=== PATIENT | male | born 1960 | race Caucasian/White ===

== ENCOUNTER 2022-06-02 20:56 | Inpatient (IN) | payer MEDICARE, MEDICAID, SELFPAY ==
[2022-06-02] VITALS (7 sets, daily range): BP systolic 111–142; BP diastolic 77–80; PULSE 66–96; RESP 18; TEMP 36.6; O2SAT 97–100; BMI 28.3
--- NOTE | 2022-06-02 22:28 | ED.SKABFB ---
HPI - Skin/Abscess/Foreign Bdy General Chief complaint: Skin/Abscess/Foreign Body Stated complaint: Lt. leg inner thigh abcess Time Seen by Provider: 06/02/22 22:15 Source: patient Mode of arrival: Ambulatory Limitations: no limitations History of Present Illness HPI narrative: Patient is a 61-year-old male who several days ago started to have increasing redness and swelling to the left upper inner thigh. He went to an outside hospital walk-in clinic. Was placed on Keflex and had a incision and drainage performed. Since that time he states that he is had increasing swelling. The redness has extended outside of the line that was drawn on his leg. Also has had increasing discomfort. There has been drainage from the incision site. He denies any testicular or urinary symptoms. Related Data Allergies Allergy/AdvReac Type Severity Reaction Status Date / Time No Known Drug Allergies Allergy Verified 06/02/22 21:40 Review of Systems Constitutional Constitutional: Reports system reviewed and no additional complaints, except as documented Musculoskeletal Musculoskeletal: Reports system reviewed and no additional complaints, except as documented Integumentary/Breasts Skin/Breast: Reports system reviewed and no additional complaints, except as documented Neurologic Neurologic: Reports system reviewed and no additional complaints, except as documented Patient History Medical History Alcohol use Tobacco abuse Surgical History History of neck surgery Social History household members: family Smoking Status: Current every day smoker alcohol intake: current substance use type: former substance user additional social history: Lives alone, unemployed Smoking Status: Current every day smoker alcohol intake frequency: 0-2 drinks per day Substance Use Type: does not use Exam Initial Vital Signs Initial Vital Signs: Vital Signs Temperature 98 F 06/02/22 21:40 Pulse Rate 96 H 06/02/22 21:40 Respiratory Rate 18 06/02/22 21:40 Blood Pressure 112/79 06/02/22 21:40 Pulse Oximetry 98 06/02/22 21:40 Oxygen Delivery Method Room Air 06/02/22 21:40 Const General: cooperative, comfortable and No ill appearing External: normal external exam Scrotum: scrotum normal Skin Other: There is a large area of redness and encompassing the anterior medial aspect of the left upper thigh. There is a large area of induration. There is a small incision from his prior I and D that is draining purulent material. Extrem General: capillary refill normal Course Orders Ordered: ED Orders 06/02/22 22:15 COVID19 -Nasal RAPID Stat 06/02/22 22:42 Basic Metabolic Panel Stat Complete Blood Count AUTO DIFF Stat 06/02/22 23:12 Blood Culture Stat 06/02/22 23:27 Wound Culture and Gram Stain Stat Acetaminophen (Acetaminophen 325 Mg Tablet) 650 mg PO Q6H PRN PRN Reason: Fever/Mild Pain (1-3) Last Admin: 06/03/22 01:10 Dose: 650 mg Documented By: AC Hydrocodone Bitart/Acetaminophen (Hydrocodone/Acet 5/325 Tablet) 2 tab PO Q4H PRN PRN Reason: Pain, Moderate (4-10 Al Hydrox/Mg Hydrox/Simethicone (Mag Hydrox/Alum/Simeth 30 Ml Udc) 30 ml PO Q6HR PRN PRN Reason: Dyspepsia Calcium Carbonate (Calcium Carbonate 500 Mg Tab) 1,000 mg PO Q4HR PRN PRN Reason: Dyspepsia Enoxaparin Sodium (Enoxaparin 40 Mg/0.4 Ml Syringe) 40 mg SUBCUT DAILY [facility] Folic Acid (Folic Acid 1 Mg Tablet) 1 mg PO DAILY [facility] Sodium Chloride (Normal Saline 0.9%) 1,000 mls @ 100 mls/hr IV CONT EFE Last Admin: 06/02/22 23:58 Dose: 100 mls/hr Documented By: AC Ceftriaxone Sodium 1,000 mg/ (Sodium Chloride) 100 mls @ 200 mls/hr IV Q24H EFE Lorazepam (Lorazepam 1 Mg Tablet) 0 mg PO CIWAPRN PRN; Protocol PRN Reason: Alcohol Withdrawal Multivitamins (Multivitamin 1 Tablet) 1 tab PO DAILY [facility] Naloxone HCl (Naloxone 0.4 Mg/Ml Vial) 0.2 mg IV Q2MIN PRN PRN Reason: Opiate Reversal Nicotine (Nicotine 14 Patch) 14 mg TOP DAILY [facility] Ondansetron HCl (Ondansetron 4 Mg/2 Ml Inj) 4 mg IV Q4HR PRN PRN Reason: Nausea And Vomiting Sennosides (Sennosides 8.6 Mg Tablet) 17.2 mg PO BEDTIME [facility] Thiamine HCl (Thiamine 100 Mg Tablet) 100 mg PO DAILY [facility] Stop: 06/06/22 09:01 Discontinued Medications Hydrocodone Bitart/Acetaminophen (Hydrocodone/Acet 5/325 Tablet) 1 tab PO NOW ONE Stop: 06/02/22 22:30 Last Admin: 06/02/22 22:54 Dose: 1 tab Documented By: [place] Hydrocodone Bitart/Acetaminophen (Hydrocodone/Acet 5/325 Tablet) 1 tab PO Q4H PRN PRN Reason: Pain, Moderate (4-10 Sodium Chloride (Normal Saline 0.9%) 1,000 mls @ 125 mls/hr IV CONT EFE Last Admin: 06/03/22 01:39 Dose: Not Given Documented By: LITTLE Vancomycin HCl (Vancomycin) 1,000 mg in 200 mls @ 200 mls/hr IV NOW ONE Stop: 06/02/22 23:28 Last Infusion: 06/03/22 00:51 Dose: 0 mls/hr Documented By: Admin: 06/02/22 23:51 Dose: 200 mls/hr Documented By: LITTLE Ceftriaxone Sodium 1,000 mg/ (Sodium Chloride) 100 mls @ 200 mls/hr IV NOW ONE Stop: 06/02/22 22:30 Last Infusion: 06/02/22 23:27 Dose: 0 mls/hr Documented By: Admin: 06/02/22 22:57 Dose: 200 mls/hr Documented By: [place] Ceftriaxone Sodium 1,000 mg/ (Sodium Chloride) 100 mls @ 200 mls/hr IV NOW ONE Stop: 06/02/22 23:09 Last Admin: 06/03/22 01:15 Dose: 200 mls/hr Documented By: LITTLE Vital Signs Vital signs: Vital Signs - 8 hr 06/02/22 21:40 06/02/22 22:15 06/02/22 22:15 Temperature 98 F Pulse Rate 96 H 75 Respiratory Rate 18 Blood Pressure 112/79 133/78 Pulse Oximetry 98 99 Oxygen Delivery Method Room Air 06/02/22 22:30 06/02/22 22:30 Temperature Pulse Rate 75 Respiratory Rate Blood Pressure 119/77 Pulse Oximetry 97 Oxygen Delivery Method MDM - Skin/Abscess/Foreign Bdy Lab Data Attestation: I reviewed the patient's lab results. 06/02/22 22:42 06/02/22 22:42 Labs: Lab Results 06/02/22 Range/Units 22:15 SARS-CoV-2 (PCR) Negative (Negative) MDM Narrative Medical decision making narrative: Patient is nontoxic appearing however there is a very large area of redness with induration and an draining abscess in his left upper inner thigh. Does not involve his scrotum. Bedside ultrasound of the induration just show areas of pockets of what I suspect are abscess however they are all less than 1 cm in diameter. The area is draining. I suspect that any further incision and drainage here in the emergency department would be more detrimental to the patient because he is having quite a bit of discomfort in the area. Patient has failed outpatient antibiotics and incision and drainage and does require admission to the hospital for IV antibiotics. I did discuss this with the patient who expressed understanding and agreement. I then discuss the admission with ELLIE Rosenberg who will admit for further evaluation and treatment. Discharge Plan Departure Patient Disposition: Admitted As Inpatient Clinical Impression: Cellulitis, Abscess Admit Date/Time: 06/02/22 22:39 Admit Provider: Sheridan Rosenberg
--- NOTE | 2022-06-02 22:49 | P.HP_ITS ---
History of Present Illness History of Present Illness Date Patient Seen: 06/02/22 Time Patient Seen: 22:49 Chief complaint: Lt. leg inner thigh abcess Narrative: Dilip Boateng is a 61-year-old male daily smoker, daily alcohol intake, possible remote history of substance use, with reported history of orthopedic issues/surgery, takes no medications who presented to the ED complaining of worsening left inner upper thigh pain swelling and drainage. Patient was seen a t a walk-in clinic approximately a week ago where he had an I&D of abscess cellulitis, and was placed on Keflex. Presenting to the ED this evening the erythema has expanded beyond the border outlined by the clinic, noted induration, tender to touch, has not spread into the groin area, and has failed oral Keflex for treatment. Patient reports no previous occurrence of cellulitis or abscess, no history of skin conditions, diabetes. Patient [place] bushes just prior to the onset. He does report a headache, and pain a 6/[address] left thigh[address] Dr. Owens ED performed bedside ultrasound and found only small pockets of infection still present too small additionally drain, as the wound is open and continues to drain, receiving rehydration was placed on vanco and Rocephin wound and blood cultures were collected. On admit patient denies chest pain, shortness in breath changes in vision, difficulty swallowing, speech impairment, weakness, numbness, tingling, difficulty with ambulation, recent falls, head injury, LOC, fever, body aches, chills, cough, recent exposure to illness, abdominal pain, nausea, vomiting, urinary incontinence/retention, dysuria, frequency, urgency, hematuria, bowel changes, constipation, incontinence, melena, recent changes to medication, illness, injury, or trauma. The time of admit patient's vitals are stable temp 98?, BP 112/79, HR 96, RR 18, O2 saturation 98% on room air. CBC and BMP are predominantly all within normal limits, CRP 7.3, procalcitonin 0.06. Patient admitted for observation for abscess cellulitis left thigh, after failing outpatient management. [facility] Medical History Alcohol use Tobacco abuse Surgical History History of neck surgery Social History (Updated 06/02/22 @ 23:43 by EDWIN Hidalgo-) Smoking Status: Current every day smoker alcohol intake: current substance use type: former substance user additional social history: Lives alone, unemployed Comment: 1 or more beers daily Meds Home Medications and Allergies Allergies Allergy/AdvReac Type Severity Reaction Status Date / Time No Known Drug Allergies Allergy Verified 06/02/22 21:40 Review of Systems Review of Systems Narrative: All 12 point systems reviewed with the patient and are negative except otherwise documented. Exam Vital Signs (past 8 hours): - 06/02/22 21:40 Temperature 98 F Pulse Rate 96 H Respiratory Rate 18 Blood Pressure 112/79 Pulse Oximetry 98 Oxygen Delivery Method Room Air Oxygen Delivery Method Room Air Narrative Exam Narrative: General: Patient is a well-developed, well-nourished male in no distress at this time. HEENT: Normocephalic, atraumatic, extraocular muscles intact, oral pharynx is clear and mucous membranes are moist. Neck is supple and symmetric, trachea is midline, no adenopathy, no thyroid enlargement, nontender, no masses palpated. Negative for JVD Chest: Normal AP diameter and contour without kyphoscoliosis, no nasal flaring, retractions, or tachypneic labored Lungs: Auscultation of all lung jones are clear without adventitious sounds, wheezes, rhonchi, or rales. Cardio: S1 & S2 with regular rate and rhythm without murmur, rubs, or gallops, no carotid bruit, no cardiac pulsations present. Abdomen: Soft nontender, negative for organomegaly, or masses. Bowel sounds are present in all 4 quadrants without guarding or rebound, no CVA tenderness. Musculoskeletal: Muscle strength and tone are equal within normal limits, no deformity, crepitus, effusions, cyanosis, clubbing or edema present. Full range of motion intact radial and pedal pulses are normal. Skin: medial upper left thigh noted erythema, induration, with open serous draining centralized wound, hard, tender warm to touch, not spread into groin area. Neuro: Alert and orientated x3, moves all extremities, sensation to touch intact, no gross deficits noted of cranial nerves. Psych: Patient has a well-kept appearance, appropriate affect, mental status attitude thought context and judgment are appropriate for age. Objective Labs 06/02/22 22:42 06/02/22 22:42 Assessment & Plan Assessment & Plan narrative: Dilip Boateng is a 61-year-old male daily smoker, daily alcohol intake, possible remote history of substance use, with reported history of orthopedic issues/surgery, takes no medications who presented to the ED complaining of worsening left inner upper thigh pain swelling and drainage. Patient admitted for observation for abscess cellulitis left thigh, after failing outpatient management. 1. Abscess/cellulitis, to left upper inner thigh, acute, present on admission- stable -negative sepsis/SIRS -walk-in clinic approximately a week ago where he had an I&D of abscess cellulitis, and was placed on Keflex. -Dr. Owens ED performed bedside ultrasound and found only small pockets of infection still present too small additionally drain, as the wound is open and continues to drain, receiving rehydration was placed on -ED: vanco, Rocephin, wound and blood cultures were collected. -monitor patient for sepsis/septic shock -NS at 100 cc/HR -continue vancomycin and Rocephin pending cultures -pain management, ice -wound care b.i.d. -no white count, CRP 7.3, procalcitonin negative -ESR, MRSA pending -ordered ultrasound of thigh in the morning-may consider surgery consult based on results 2. Alcohol use, daily, chronic, present on admission -patient placed on CIWA protocol 3. Tobacco abuse, daily, chronic, present on admission -patient education regarding tobacco cessation -nicotine patch 4. Overweight, mild, acute on chronic, present on admission -BMI 28.3 -dietary consult ordered regarding nutritional education and information for dietary, lifestyle, exercise, and weight changes. -the patient is at much higher risk for medical and surgical complications due to obesity as it relates to chronic illnesses:, and acute illness. The patient's obesity increases the difficulty and complexity of medical and/or surgical interventions, management and increases the chances of poor outcome such as morbidity and mortality as well as impaired wound healing. Code status: Full Surrogate decision maker: Sister Quynh VAZQUEZ PCR: Negative DVT/VTE prophylaxis: Lovenox and SCDs Disposition: Patient admitted for IV antibiotics cultures pending, fluid rehydration, wound care, expected length of stay less than 2 midnights I have utilized all available immediate resources to obtain, update, or review the patient's current medications. I confirmed that the patient's advanced care plan is present, Code status is documented and/or surrogate decision maker is listed in the patient's medical record. I have personally reviewed patient's chart notes from PCP, specialists, diagnostic imaging, and laboratory results.
[2022-06-02] MEDS: HYDROCODONE/ACET 5/325 TABLET 1 TAB PO (22:54)
[2022-06-02] MEDS: cefTRIAXone 1,000 MG in SODIUM CHLORIDE 0.9% 100 ML 200 MG IV (22:57)
[2022-06-02 23:02] LABS: Add Manual Diff / Slide Review NO; Basophils Absolute Auto 100 /uL (0-100); Basophils Percent Auto 0.5 % (0-2); Eosinophils Absolute Auto 400 /uL (0-450); Eosinophils Percent Auto 4.1 % (2-4); Hematocrit 40.7 % (41-53); Lymphocytes Absolute Auto 1400 /uL (1100-4500); Lymphocytes Percent Auto 14.8 % (25-40); Mean Corpuscular HGB Conc 34.4 % (30-36); Mean Corpuscular Hemoglobin 32.5 PG (26-34); Mean Corpuscular Volume 94.4 fL (80-100); Monocytes Absolute Auto 900 /uL (0-900); Monocytes Percent Auto 9.1 % (3-14); Neutrophils Absolute Auto 6900 /uL (1500-7000); Neutrophils Percent Auto 71.5 % (50-75); Platelet Count 154 X10^3/uL (150-400); Red Blood Cell Count 4.31 X10^6/uL (4.5-5.9); White Blood Cell Count 9.7 X10^3/uL (4.5-11.0)
[2022-06-02 23:13] LABS: BUN Creatinine Ratio 22.4 (6-22); Blood Urea Nitrogen 13 mg/dL (9-20); Calcium 8.6 mg/dL (8.4-10.2); Carbon Dioxide 27 mmol/L (22-32); Chloride 101 mmol/L (98-107); Estimated Glomerular Filt Rate > 60 mL/min (>60); Glucose 89 mg/dL (80-110); HEMOLYSIS 22 (0-50); Potassium 4.3 mmol/L (3.4-5.1); Sodium 138 mmol/L (137-145)
[2022-06-02 23:15] LABS: C-Reactive Protein Quant 7.3 mg/dL (<1.0)
[2022-06-02 23:22] LABS: COVID19 -Nasal RAPID Negative (Negative)
[2022-06-02 23:30] LABS: Procalcitonin 0.06 ng/mL (<0.5)
[2022-06-02 23:48] LABS: Erythrocyte Sedimentation Rate 46 MM/HR (0-15)
[2022-06-02] MEDS: VANCOMYCIN 1,000 MG/200 ML PIGGYBACK 200 MG IV (23:51)
[2022-06-02] MEDS: SODIUM CHLORIDE 0.9% 1,000 ML 100 ML IV (23:58)
[2022-06-03 00:10] VITALS: BMI 28.3
[2022-06-03] MEDS: ACETAMINOPHEN 325 MG TABLET 650 MG PO (01:10)
[2022-06-03] MEDS: cefTRIAXone 1,000 MG in SODIUM CHLORIDE 0.9% 100 ML 200 MG IV ×2 (01:15→22:43)
[2022-06-03 02:05] LABS: MRSA (Nasal) PCR DETECTED (Not Detect)
[2022-06-03] MEDS: HYDROCODONE/ACET 5/325 TABLET 2 TAB PO ×3 (02:32→20:30)
[2022-06-03 03:29] VITALS: BP 118/70; PULSE 70; RESP 18; TEMP 36.4; O2SAT 97
--- NOTE | 2022-06-03 04:06 | PC.NURSE ---
Photos of pt's abscess and surrounding erythema.
[2022-06-03 05:15] LABS: Add Manual Diff / Slide Review NO; Basophils Absolute Auto 100 /uL (0-100); Basophils Percent Auto 0.6 % (0-2); Eosinophils Absolute Auto 400 /uL (0-450); Hematocrit 37.2 % (41-53); Hemoglobin 12.6 g/dL (13.5-17.5); Lymphocytes Absolute Auto 1400 /uL (1100-4500); Mean Corpuscular HGB Conc 33.9 % (30-36); Mean Corpuscular Hemoglobin 31.7 PG (26-34); Mean Corpuscular Volume 93.5 fL (80-100); Monocytes Absolute Auto 900 /uL (0-900); Monocytes Percent Auto 10.7 % (3-14); Neutrophils Absolute Auto 5900 /uL (1500-7000); Neutrophils Percent Auto 67.7 % (50-75); Platelet Count 148 X10^3/uL (150-400); Red Blood Cell Count 3.97 X10^6/uL (4.5-5.9); Red Cell Distribution Width 12.5 % (11.6-14.8); White Blood Cell Count 8.7 X10^3/uL (4.5-11.0)
[2022-06-03 05:20] LABS: BUN Creatinine Ratio 24.5 (6-22); Blood Urea Nitrogen 13 mg/dL (9-20); Calcium 8.1 mg/dL (8.4-10.2); Carbon Dioxide 27 mmol/L (22-32); Chloride 104 mmol/L (98-107); Estimated Glomerular Filt Rate > 60 mL/min (>60); Glucose 112 mg/dL (80-110); HEMOLYSIS < 15 (0-50); Potassium 3.6 mmol/L (3.4-5.1); Sodium 136 mmol/L (137-145)
[2022-06-03 06:53] LABS: Procalcitonin 0.06 ng/mL (<0.5)
[2022-06-03 07:00] VITALS: BP 108/69; PULSE 66; RESP 18; TEMP 35.9; O2SAT 96
--- NOTE | 2022-06-03 09:00 | DI.US.S_ITS ---
PROCEDURE: US EXTREMITY NONVASC LOWER LT INDICATIONS: LEFT INNER THIGH ABSCESS TECHNIQUE: Real-time scanning was performed of the left thigh , with image documentation. COMPARISON: None. FINDINGS: 0.8 x 7.2 x 2.5 cm phlegmon in the area of interest. Superficial and subcutaneous edema is present. This extends superior to the wound opening. IMPRESSION: Irregular fluid collection, likely a phlegmon, measuring 0.8 x 7.2 x 2.5 cm extending from the wound opening. Dictated by: Nikolas Mireles M.D. on 06/03/2022 at 8:48 Approved by: Nikolas Mireles M.D. on 06/03/2022 at 8:50
[2022-06-03] MEDS: FOLIC ACID 1 MG TABLET PO (09:26)
[2022-06-03] MEDS: ENOXAPARIN 40 MG/0.4 ML SYRINGE SUBCUT (09:26)
[2022-06-03] MEDS: MULTIVITAMIN 1 TABLET 1 TAB PO (09:26)
[2022-06-03] MEDS: NICOTINE 14 PATCH 14 MG TOP (09:26)
[2022-06-03] MEDS: HYDROMORPHONE 1 MG INJ IV ×2 (09:26→22:43)
[2022-06-03] MEDS: THIAMINE 100 MG TABLET PO (09:26)
[2022-06-03] MEDS: SODIUM CHLORIDE 0.9% 1,000 ML 100 ML IV (09:39)
--- NOTE | 2022-06-03 10:43 | PC.NURSE ---
Pt A&O, discussed plan of care, Bilateral LE pink/red, with irritation. Marked borders. Pain meds and nicotine patch as ordered.
--- NOTE | 2022-06-03 10:48 | PM.PN.1 ---
Subjective Subjective Interval history: 61 M with EtOH, tobacco use admitted with L thigh abscess. MRSA nasal swab was positive, started on vancomycin today in addition to ceftriaxone. He was frustrated this morning with uncontrolled pain. There is a discrete collection in his L calf today, ultrasound shows phlegmon. Surgery was contacted, will see patient later this morning for possible I&D. He was made NPO. Exam Vital Signs (past 8 hours): - 06/03/22 03:29 06/03/22 07:00 Temperature 97.6 F 96.7 F L Pulse Rate 70 66 Respiratory Rate 18 18 Blood Pressure 118/70 108/69 Pulse Oximetry 97 96 Oxygen Flow Rate 0 0 Oxygen Delivery Method Room Air Oxygen Flow Rate 0 Narrative Exam Narrative: General: Patient is a well-developed, well-nourished male in no distress at this time. Chest: Normal AP diameter and contour without kyphoscoliosis, no nasal flaring, retractions, or tachypneic labored Lungs: Auscultation of all lung jones are clear without adventitious sounds, wheezes, rhonchi, or rales. Cardio: S1 & S2 with regular rate and rhythm without murmur, rubs, or gallops, no carotid bruit, no cardiac pulsations present. Abdomen: Soft nontender, negative for organomegaly, or masses. Bowel sounds are present in all 4 quadrants without guarding or rebound, no CVA tenderness. Ext: No edema or joint effusion. L thigh with stable erythema, there is an approx 5x7 cm area with central puncture on the L medial thigh that is firm, tender, probable abscess underneath. Neuro: Alert and orientated x3, moves all extremities, sensation to touch intact, no gross deficits noted of cranial nerves. Psych: Patient has a well-kept appearance, appropriate affect, mental status attitude thought context and judgment are appropriate for age. Objective Labs 06/03/22 04:49 06/03/22 04:49 Labs: Laboratory Results - last 24 hr 06/02/22 06/02/22 06/02/22 22:15 22:42 22:42 WBC 9.7 RBC 4.31 L Hgb 14.0 Hct 40.7 L MCV 94.4 MCH 32.5 MCHC 34.4 RDW 13.0 Plt Count 154 Neut % (Auto) 71.5 Lymph % (Auto) 14.8 L [place] % (Auto) 9.1 Eos % (Auto) 4.1 H Baso % (Auto) 0.5 Neut # (Auto) 6900 Lymph # (Auto) 1400 [place] # (Auto) 900 Eos # (Auto) 400 Baso # (Auto) 100 ESR Sodium 138 Potassium 4.3 Chloride 101 Carbon Dioxide 27 BUN 13 Creatinine 0.58 L Estimated GFR > 60 BUN/Creatinine Ratio 22.4 H Glucose 89 Calcium 8.6 C-Reactive Protein Procalcitonin Nasal Screen MRSA (PCR) SARS-CoV-2 (PCR) Negative 06/02/22 06/02/22 06/02/22 22:42 22:42 22:42 WBC RBC Hgb Hct MCV MCH MCHC RDW Plt Count Neut % (Auto) Lymph % (Auto) [place] % (Auto) Eos % (Auto) Baso % (Auto) Neut # (Auto) Lymph # (Auto) [place] # (Auto) Eos # (Auto) Baso # (Auto) ESR 46 H Sodium Potassium Chloride Carbon Dioxide BUN Creatinine Estimated GFR BUN/Creatinine Ratio Glucose Calcium C-Reactive Protein 7.3 H Procalcitonin 0.06 Nasal Screen MRSA (PCR) SARS-CoV-2 (PCR) 06/03/22 06/03/22 06/03/22 00:33 04:49 04:49 WBC 8.7 RBC 3.97 L Hgb 12.6 L Hct 37.2 L MCV 93.5 MCH 31.7 MCHC 33.9 RDW 12.5 Plt Count 148 L Neut % (Auto) 67.7 Lymph % (Auto) 16.0 L [place] % (Auto) 10.7 Eos % (Auto) 5.0 H Baso % (Auto) 0.6 Neut # (Auto) 5900 Lymph # (Auto) 1400 [place] # (Auto) 900 Eos # (Auto) 400 Baso # (Auto) 100 ESR Sodium 136 L Potassium 3.6 Chloride 104 Carbon Dioxide 27 BUN 13 Creatinine 0.53 L Estimated GFR > 60 BUN/Creatinine Ratio 24.5 H Glucose 112 H Calcium 8.1 L C-Reactive Protein Procalcitonin Nasal Screen MRSA (PCR) Detected H SARS-CoV-2 (PCR) 06/03/22 04:49 WBC RBC Hgb Hct MCV MCH MCHC RDW Plt Count Neut % (Auto) Lymph % (Auto) [place] % (Auto) Eos % (Auto) Baso % (Auto) Neut # (Auto) Lymph # (Auto) [place] # (Auto) Eos # (Auto) Baso # (Auto) ESR Sodium Potassium Chloride Carbon Dioxide BUN Creatinine Estimated GFR BUN/Creatinine Ratio Glucose Calcium C-Reactive Protein Procalcitonin 0.06 Nasal Screen MRSA (PCR) SARS-CoV-2 (PCR) [facility] Medical History Alcohol use Tobacco abuse Surgical History History of neck surgery Social History household members: family Smoking Status: Current every day smoker alcohol intake: current substance use type: former substance user additional social history: Lives alone, unemployed Assessment & Plan Assessment & Plan narrative: Dilip Boateng is a 61-year-old male daily smoker, daily alcohol intake, possible remote history of substance use, with reported history of orthopedic issues/surgery, takes no medications who presented to the ED complaining of worsening left inner upper thigh pain swelling and drainage. Patient admitted for abscess and cellulitis of his left thigh. 1. Abscess/cellulitis, to left upper inner thigh, acute, present on admission- stable -continue ceftriaxone and vancomycin. + MRSA swab. Was previously seen and discharged home, but antibiotic coverage did not include MRSA. -appreciate general surgery evaluation for possible I&D -made NPO this morning after breakfast -A1c ordered for possible Diabetes contribution. AM glucose is 112. 2. Alcohol use, daily, chronic, present on admission -patient placed on CIWA protocol 3. Tobacco abuse, daily, chronic, present on admission -patient education regarding tobacco cessation -nicotine patch 4. Overweight, mild, acute on chronic, present on admission -BMI 28.3 -dietary consult ordered regarding nutritional education and information for dietary, lifestyle, exercise, and weight changes. -the patient is at much higher risk for medical and surgical complications due to obesity as it relates to chronic illnesses:, and acute illness. The patient's obesity increases the difficulty and complexity of medical and/or surgical interventions, management and increases the chances of poor outcome such as morbidity and mortality as well as impaired wound healing. Code status: Full Surrogate decision maker: Sister Quynh MAYESID PCR: Negative DVT/VTE prophylaxis: Lovenox and SCDs Disposition: Inpatient, will probably discharge home in approx 2-3 days depending on surgical evaluation, response to antibiotic therapies. Quality VTE Deep Vein Thrombosis/Pulmonary Embolism Present on Admission: No
[2022-06-03] MEDS: VANCOMYCIN 1,250 MG/250 ML PIGGYBACK 250 MG IV ×2 (11:36→20:31)
--- NOTE | 2022-06-03 12:54 | CM.DANOTE ---
Patient is a 61 yo male who was admitted on 06/02/22 for Inner Thigh Abscess. Pt has [facility] and [facility] for insurance and his PCP is Akosua Hernandez. EMR was reviewed. Per MD, pt with hx of ETOH use and remote MOHINI hx and failed outpt oral abx for abscess after going to the Walk In [facility]. Pt admitted for IV-abx and Surgeon consult. Per Surgeon, pt to be NPO after midnight tonight with plan of likely I&D tomorrow Wed. SW met bedside with pt and explained role and he confirms he has been staying/living on [address] in a trailer that does not currently have running water or electricity. Pt states his sister is local and supportive and he was staying there for a while but her son returned home from [place] and needed his room back. Pt is active and independent at baseline with ADLs and does not use DME for ambulation and has his own vehicle he drives. Pt states his plan is to return to his trailer once he has healed from his infection and states he could stay at his sister's again if needed but she is currently really sick so pt is inquiring about possible other options for housing at d/c while his wound is healing. Pt denies any hx of using [facility] Motel Voucher Program and SW informed him it likely would only be for 1-2 days if he meets criteria and pt very appreciative and SW provided the number to call to inquire about Motel Voucher at discharge. Pt denies any other needs right now but confirms he has Medicaid transportation benefits and depending on when he discharges he may need Medicaid Taxi or his sister can transport if she is feeling better. Plan: SW to follow closely for plan of I&D tomorrow and ongoing IV-Abx to determine any further wound care needs. Pt plans to try to utilize Motel Voucher Program for a day or two at d/c and then go stay with his sister before returning to his trailer. SW to follow for other identified discharge planning needs. MARA Hutson Discharge Planning/Care Management CM Discharge Assessment Start: 06/03/22 12:50 Freq: Status: Active Protocol: Document 06/03/22 12:50 BF (Rec: 06/03/22 12:53 BF [id number]) Discharge Planning Assessment Assigned Quality Nurse MARA Landon DPOA/Assigned Designee Name none, informally sister Contact Information [phone] Advance Directives? No Advance Directives on File No History Provided By Patient,Medical Record Has Patient been admitted in last 30 No days? Prior Living Arrangements Homeless Comment stays at his local sister's sometimes, has a trailer but no running water or electricity Household Members family,none Type of transporation used prior to Drives own vehicle admit Independent with ADL's Yes Is patient alert and oriented? Yes Caregiver for Another No Barriers to Discharge Yes Comment interested in [facility] Motel Voucher Program Discharge Plan Home Community Services Wound Care Transportation Arrangement Either medicaid taxi or his sister Whiteboard Updated in Patient Room with Yes name and ext. # of Quality Nurse Review Status In Process Please Provide Date Initial DC 06/03/22 Assessment Was Performed Next Review Type Continued Stay Review
--- NOTE | 2022-06-03 14:36 | PM.CN ---
History of Present Illness Consult details Date Patient Seen: 06/03/22 Time Patient Seen: 14:36 Chief complaint: Lt. leg inner thigh abcess Reason for consult: Left thigh abscess Requesting provider: Daren Carlton Narrative: Several days of swelling, redness and pain of left upper thigh. Sepsis on admission and I and D in ER. Meds Home Medications and Allergies Allergies Allergy/AdvReac Type Severity Reaction Status Date / Time No Known Drug Allergies Allergy Verified 06/02/22 21:40 Review of Systems Review of Systems ROS: Yes All systems reviewed with the patient and are negative except as otherwise documented Exam Vital Signs (past 8 hours): - 06/03/22 07:00 Temperature 96.7 F L Pulse Rate 66 Respiratory Rate 18 Blood Pressure 108/69 Pulse Oximetry 96 Oxygen Flow Rate 0 Oxygen Delivery Method Room Air Oxygen Flow Rate 0 Narrative Exam Narrative: 8cm x 4cm abscess on left upper inner thigh. Minimal drainage from small incision done in ED. Const General: cooperative Nutritional Appearance: average body habitus HENMT Head: normocephalic and atraumatic Eyes Sclera: sclerae normal Neck Neck: trachea midline Resp Effort & Inspection: normal respiratory effort and able to speak in complete sentences Cardio Rate: tachycardic Rhythm: regular rhythm Skin Other: Left upper, inner thigh abscess incompletely drained Neuro General: patient alert, patient awake and patient oriented x3 Cognition: normal cognition Psych Judgment: judgment good Objective Labs 06/03/22 04:49 06/03/22 04:49 Labs: Laboratory Results - last 24 hr 06/02/22 06/02/22 06/02/22 22:15 22:42 22:42 WBC 9.7 RBC 4.31 L Hgb 14.0 Hct 40.7 L MCV 94.4 MCH 32.5 MCHC 34.4 RDW 13.0 Plt Count 154 Neut % (Auto) 71.5 Lymph % (Auto) 14.8 L [place] % (Auto) 9.1 Eos % (Auto) 4.1 H Baso % (Auto) 0.5 Neut # (Auto) 6900 Lymph # (Auto) 1400 [place] # (Auto) 900 Eos # (Auto) 400 Baso # (Auto) 100 ESR Sodium 138 Potassium 4.3 Chloride 101 Carbon Dioxide 27 BUN 13 Creatinine 0.58 L Estimated GFR > 60 BUN/Creatinine Ratio 22.4 H Glucose 89 Calcium 8.6 C-Reactive Protein Procalcitonin Nasal Screen MRSA (PCR) SARS-CoV-2 (PCR) Negative 06/02/22 06/02/22 06/02/22 22:42 22:42 22:42 WBC RBC Hgb Hct MCV MCH MCHC RDW Plt Count Neut % (Auto) Lymph % (Auto) [place] % (Auto) Eos % (Auto) Baso % (Auto) Neut # (Auto) Lymph # (Auto) [place] # (Auto) Eos # (Auto) Baso # (Auto) ESR 46 H Sodium Potassium Chloride Carbon Dioxide BUN Creatinine Estimated GFR BUN/Creatinine Ratio Glucose Calcium C-Reactive Protein 7.3 H Procalcitonin 0.06 Nasal Screen MRSA (PCR) SARS-CoV-2 (PCR) 06/03/22 06/03/22 06/03/22 00:33 04:49 04:49 WBC 8.7 RBC 3.97 L Hgb 12.6 L Hct 37.2 L MCV 93.5 MCH 31.7 MCHC 33.9 RDW 12.5 Plt Count 148 L Neut % (Auto) 67.7 Lymph % (Auto) 16.0 L [place] % (Auto) 10.7 Eos % (Auto) 5.0 H Baso % (Auto) 0.6 Neut # (Auto) 5900 Lymph # (Auto) 1400 [place] # (Auto) 900 Eos # (Auto) 400 Baso # (Auto) 100 ESR Sodium 136 L Potassium 3.6 Chloride 104 Carbon Dioxide 27 BUN 13 Creatinine 0.53 L Estimated GFR > 60 BUN/Creatinine Ratio 24.5 H Glucose 112 H Calcium 8.1 L C-Reactive Protein Procalcitonin Nasal Screen MRSA (PCR) Detected H SARS-CoV-2 (PCR) 06/03/22 04:49 WBC RBC Hgb Hct MCV MCH MCHC RDW Plt Count Neut % (Auto) Lymph % (Auto) [place] % (Auto) Eos % (Auto) Baso % (Auto) Neut # (Auto) Lymph # (Auto) [place] # (Auto) Eos # (Auto) Baso # (Auto) ESR Sodium Potassium Chloride Carbon Dioxide BUN Creatinine Estimated GFR BUN/Creatinine Ratio Glucose Calcium C-Reactive Protein Procalcitonin 0.06 Nasal Screen MRSA (PCR) SARS-CoV-2 (PCR) REPLACED BY [facility] Medical History Alcohol use Tobacco abuse Surgical History History of neck surgery Social History household members: family and none Tobacco & Substance Use Smoking Status: Current every day smoker alcohol intake: current substance use type: former substance user Additional Social History additional social history: Lives alone, unemployed Assessment & Plan Assessment & Plan narrative: Incomplete drainage of left upper inner thigh abscess. Ate full breakfast this morning Plan: recheck in am with I and D in OR if still needed COVID-19 COVID-19 status: Negative Time Spent With Patient Time with patient: less than 30 minutes
[2022-06-03 15:00] VITALS: BP 127/93; PULSE 71; RESP 20; TEMP 36.2; O2SAT 100
--- NOTE | 2022-06-03 15:47 | DIET.CONS ---
Addendum entered by Tequila Marquez 06/03/22 16:22: RD agrees with internal salesperson note below Original Note: Dietary Consultation Note Admission Date: 06/02/2022 22:39 Assessment: 61 y/o M admitted on 06/02/[address] for inner thigh abscess. RD consult for BMI 28.3. Met with pt at bedside to discuss current diet. Pt not currently open to nutrition recommendations or participation in nutrition therapy. Pt difficult to keep focused on nutrition topics and unclear if pt report of diet is accurate. When asked about food security, pt seems to utilize sister as a resource. Unclear if he has other resources for food security. Limited fruit and vegetable intake per diet recall. When discussing produce options, pt feels canned may not be a healthy option. Diet recall (when on his own): B: ramen OR cereal (fruit loops) L: burrito (rice, beans, meat) D: unable to determine Diet recall: (when at sister?s) B: cereal (honey nut cheerios) OR oatmeal OR eggs and sausage. L: whole grain sandwich D: stir pearce with rice OR fish OR [place] food Pt reports taking vitamin C and B12 supplements. Barriers: per EMR notes, pt lives in a trailer with no electricity or running water. Occasionally stays with sister. Ht: 182.88 cm Wt: 94.801 kg BMI: 28.3 Last BM: 06/03/22 (06/03/22 00:10) MNA: 14 Yoni Score: 19 Diet: 06/03/22 Lunch General (Regular) Diet Diet Modifications: 06/03/22 Dinner General (Regular) Diet Diet Modifications: 06/04/22 00:01 NPO Diet Diet Modifications: NPO Type: NPO except for Meds Nutrition Percent Meal Consumed 100% 06/03/22 03:29 Labs: RBC 3.97 X10^6/uL (4.5-5.9) L 06/03/22 04:49 Hgb 12.6 g/dL (13.5-17.5) L 06/03/22 04:49 Hct 37.2 % (41-53) L 06/03/22 04:49 Creatinine 0.53 mg/dL (0.66-1.25) L 06/03/22 04:49 Nutrition Diagnosis: Not ready for diet change r/t pre-contemplative stage of change aeb limited participation in nutrition discussion today. Interventions: discussed vitamins and minerals to support abscess/cellulitis healing. Reviewed low sodium/sugar options for canned/frozen produce as an affordable option. Monitoring/Evaluations: RD consult prn. Electronically Signed by: Clementine Turpin 06/03/22 15:47 Clinical Dietitian [address] [id number]
[2022-06-03 19:35] VITALS: BP 118/78; PULSE 71; RESP 20; TEMP 36.7; O2SAT 97
[2022-06-03] MEDS: SENNOSIDES 8.6 MG TABLET 17.2 MG PO (20:30)
[2022-06-03] MEDS: FLUTICASONE 120 SPRAY/16 GM SPRAY.SUSP NASAL (21:47)
[2022-06-03 23:40] VITALS: BP 121/74; PULSE 73; RESP 19; TEMP 36.7; O2SAT 97
[2022-06-04] VITALS (9 sets, daily range): BP systolic 107–145; BP diastolic 69–93; PULSE 67–89; RESP 12–21; TEMP 36.4–37.3; O2SAT 94–100; BMI 28.3
[2022-06-04] MEDS: HYDROMORPHONE 1 MG INJ IV ×5 (00:50→10:16)
[2022-06-04] MEDS: HYDROCODONE/ACET 5/325 TABLET 2 TAB PO ×2 (02:05→15:50)
[2022-06-04] MEDS: VANCOMYCIN 1,250 MG/250 ML PIGGYBACK 250 MG IV ×2 (04:40→14:23)
[2022-06-04 06:23] LABS: Add Manual Diff / Slide Review NO; Basophils Absolute Auto 100 /uL (0-100); Basophils Percent Auto 0.8 % (0-2); Eosinophils Absolute Auto 500 /uL (0-450); Eosinophils Percent Auto 5.8 % (2-4); Hematocrit 36.4 % (41-53); Hemoglobin 12.5 g/dL (13.5-17.5); Lymphocytes Absolute Auto 1700 /uL (1100-4500); Lymphocytes Percent Auto 21.2 % (25-40); Mean Corpuscular HGB Conc 34.4 % (30-36); Mean Corpuscular Hemoglobin 32.4 PG (26-34); Mean Corpuscular Volume 94.2 fL (80-100); Monocytes Absolute Auto 800 /uL (0-900); Monocytes Percent Auto 10.2 % (3-14); Neutrophils Absolute Auto 5000 /uL (1500-7000); Platelet Count 193 X10^3/uL (150-400); Red Blood Cell Count 3.86 X10^6/uL (4.5-5.9); Red Cell Distribution Width 12.5 % (11.6-14.8); White Blood Cell Count 8.1 X10^3/uL (4.5-11.0)
[2022-06-04 06:42] LABS: BUN Creatinine Ratio 17.7 (6-22); Blood Urea Nitrogen 11 mg/dL (9-20); Calcium 8.4 mg/dL (8.4-10.2); Carbon Dioxide 26 mmol/L (22-32); Chloride 101 mmol/L (98-107); Estimated Glomerular Filt Rate > 60 mL/min (>60); Glucose 95 mg/dL (80-110); HEMOLYSIS < 15 (0-50); Potassium 4.2 mmol/L (3.4-5.1); Sodium 136 mmol/L (137-145)
[2022-06-04] MEDS: FLUTICASONE 120 SPRAY/16 GM SPRAY.SUSP NASAL (08:55)
[2022-06-04] MEDS: NICOTINE 14 PATCH 14 MG TOP (08:56)
[2022-06-04] MEDS: MULTIVITAMIN 1 TABLET 1 TAB PO (08:56)
[2022-06-04] MEDS: FOLIC ACID 1 MG TABLET PO (08:56)
[2022-06-04] MEDS: THIAMINE 100 MG TABLET PO (08:57)
[2022-06-04] MEDS: ACETAMINOPHEN 325 MG TABLET 650 MG PO (09:13)
[2022-06-04 13:04] LABS: Vancomycin Trough 13.1 ug/mL (10-20)
[2022-06-04] MEDS: LACTATED RINGERS 1,000 ML 42 ML IV (14:13)
--- NOTE | 2022-06-04 14:37 | PM.PN.1 ---
Subjective Subjective Interval history: 61 M admitted with L thigh abscess, planned for I&D today. He has improved redness, but the abscess area is still quite tender. He asked a number of questions about surgical technique and about MRSA. Exam Vital Signs (past 8 hours): - 06/04/22 08:00 06/04/22 08:55 06/04/22 14:10 Temperature 97.6 F 97.5 F L Pulse Rate 75 71 Respiratory Rate 16 21 Blood Pressure 121/78 122/81 Pulse Oximetry 95 100 Oxygen Delivery Method Room Air Room Air Oxygen Delivery Method Room Air Oxygen Flow Rate 0 Narrative Exam Narrative: General: Patient is a well-developed, well-nourished male in no distress at this time. Chest: Normal AP diameter and contour without kyphoscoliosis, no nasal flaring, retractions, or tachypneic labored Lungs: Auscultation of all lung jones are clear without adventitious sounds, wheezes, rhonchi, or rales. Cardio: S1 & S2 with regular rate and rhythm without murmur, rubs, or gallops, no carotid bruit, no cardiac pulsations present. Abdomen: Soft nontender, negative for organomegaly, or masses. Bowel sounds are present in all 4 quadrants without guarding or rebound, no CVA tenderness. Ext: No edema or joint effusion. L thigh with improved erythema based on prior skin markings, there is an approx 5x8 cm area with central puncture on the L medial thigh that is firm, tender, probable abscess underneath (slightly bigger today compared to yesterday) Neuro: Alert and orientated x3, moves all extremities, sensation to touch intact, no gross deficits noted of cranial nerves. Psych: Patient has a well-kept appearance, appropriate affect, mental status attitude thought context and judgment are appropriate for age. Objective Labs 06/04/22 05:29 06/04/22 05:29 Labs: Laboratory Results - last 24 hr 06/04/22 06/04/22 06/04/22 05:29 05:29 05:29 WBC 8.1 RBC 3.86 L Hgb 12.5 L Hct 36.4 L MCV 94.2 MCH 32.4 MCHC 34.4 RDW 12.5 Plt Count 193 Neut % (Auto) 62.0 Lymph % (Auto) 21.2 L [place] % (Auto) 10.2 Eos % (Auto) 5.8 H Baso % (Auto) 0.8 Neut # (Auto) 5000 Lymph # (Auto) 1700 [place] # (Auto) 800 Eos # (Auto) 500 H Baso # (Auto) 100 Sodium 136 L Potassium 4.2 Chloride 101 Carbon Dioxide 26 BUN 11 Creatinine 0.62 L Estimated GFR > 60 BUN/Creatinine Ratio 17.7 Glucose 95 Hemoglobin A1c Cancelled Calcium 8.4 Vancomycin Trough 06/04/22 12:28 WBC RBC Hgb Hct MCV MCH MCHC RDW Plt Count Neut % (Auto) Lymph % (Auto) [place] % (Auto) Eos % (Auto) Baso % (Auto) Neut # (Auto) Lymph # (Auto) [place] # (Auto) Eos # (Auto) Baso # (Auto) Sodium Potassium Chloride Carbon Dioxide BUN Creatinine Estimated GFR BUN/Creatinine Ratio Glucose Hemoglobin A1c Calcium Vancomycin Trough 13.1 [facility] Medical History Alcohol use Tobacco abuse Surgical History History of neck surgery Social History household members: family and none Smoking Status: Current every day smoker alcohol intake: current substance use type: former substance user additional social history: Lives alone, unemployed Assessment & Plan Assessment & Plan narrative: Dilip Boateng is a 61-year-old male daily smoker, daily alcohol intake, possible remote history of substance use, with reported history of orthopedic issues/surgery, takes no medications who presented to the ED complaining of worsening left inner upper thigh pain swelling and drainage. Patient admitted for abscess and cellulitis of his left thigh. 1. Abscess/cellulitis, to left upper inner thigh, acute, present on admission- stable -continue ceftriaxone and vancomycin. + MRSA swab. Was previously seen and discharged home, but antibiotic coverage did not include MRSA. -appreciate general surgery evaluation for I&D, planned for today -A1c ordered for possible Diabetes contribution. AM glucose is 95. A1c now send out, currently pending. 2. Alcohol use, daily, chronic, present on admission -patient placed on CIWA protocol 3. Tobacco abuse, daily, chronic, present on admission -patient education regarding tobacco cessation -nicotine patch 4. Overweight, mild, acute on chronic, present on admission -BMI 28.3 -dietary consult ordered regarding nutritional education and information for dietary, lifestyle, exercise, and weight changes. -the patient is at much higher risk for medical and surgical complications due to obesity as it relates to chronic illnesses:, and acute illness. The patient's obesity increases the difficulty and complexity of medical and/or surgical interventions, management and increases the chances of poor outcome such as morbidity and mortality as well as impaired wound healing. Code status: Full Surrogate decision maker: Sister Quynh Huddleston COVLUCRECIA PCR: Negative DVT/VTE prophylaxis: Lovenox and SCDs Disposition: Inpatient, will probably discharge home in approx 1-2 days depending on wound care needs and improvement in pain,swelling after I&D. Quality VTE Deep Vein Thrombosis/Pulmonary Embolism Present on Admission: No
--- NOTE | 2022-06-04 14:40 | PM.PREOP ---
Pre-operative Note COVID-19 COVID-19 status: Negative Criteria for continued procedure: Expected advancement of disease process Interval Note History & Physical reviewed/Exam performed by Physician: Yes Changes to H&P: No
--- NOTE | 2022-06-04 14:55 | SUR.OPER ---
Supine on padded STRETCHER, head on pillow, arms secured on padded arm boards at <90 degrees abduction, legs uncrossed, safety belt at thigh, tape over blanket over lower legs.
--- NOTE | 2022-06-04 15:25 | PM.OP.1 ---
Operative Date/Time/Diagnoses Date of procedure: 06/04/22 Time of procedure: 15:25 Pre-op diagnosis: Left thigh abscess Post-op diagnosis: same Procedure & Clinicians Procedure: I and D of left thigh abscess Same procedure as scheduled: Yes Indications: Left thigh abscess Surgeon: Ese Raman Click Yes if Unassisted: Yes Anesthesia Type: General Operative Notes Findings: Large abscess cavity approximately 15 cm by 3 cm on the left upper thigh with septations and some residual pus Closure Type: primary Specimen(s): other (Cultures) Applied: drain(s) (10. ) Estimated Blood Loss (mL): 20 Blood products transfused: none Procedure in detail: Preop diagnosis: Left thigh abscess Postop diagnosis: Same Operative procedure: I and D of left thigh abscess Surgeon: Shahida Raman MD Findings: Sizable left thigh abscess cavity with some residual pus. Procedure: Patient placed in a supine position. Prepped and draped sterile fashion to expose his left thigh. The existing drainage point was widened to evacuate breakdown septations of the abscess cavity was 15 by 3 cm in size. Cavity was irrigated in a 10. Andrew drain was placed. The wound was closed with interrupted 2-0 nylon. And drain was sutured to the skin with a 2-0 nylon. Patient was awakened, extubated, taken to recovery room in stable condition. Needle, instrument, sponge counts were correct. Sterile dressings were placed. Specimen: Culture left thigh Blood loss: 20 mL Complications: none Post-operative Condition: stable Disposition: PACU
[2022-06-04] MEDS: VANCOMYCIN TROUGH 1 REQUEST MISC (16:08)
--- NOTE | 2022-06-04 17:30 | P.DS_ITS ---
History of Present Illness History of Present Illness Date Patient Seen: 06/04/22 Time Patient Seen: 17:31 Chief complaint: Lt. leg inner thigh abcess Narrative: Dilip Boateng is a 61-year-old male daily smoker, daily alcohol intake, possible remote history of substance use, with reported history of orthopedic issues/surgery, takes no medications who presented to the ED complaining of worsening left inner upper thigh pain swelling and drainage. Patient was seen a t a walk-in clinic approximately a week ago where he had an I&D of abscess cellulitis, and was placed on Keflex. Presenting to the ED this evening the erythema has expanded beyond the border outlined by the clinic, noted induration, tender to touch, has not spread into the groin area, and has failed oral Keflex for treatment. Patient reports no previous occurrence of cellulitis or abscess, no history of skin conditions, diabetes. Patient reports that [place] and was clearing blackberries bushes just prior to the onset. He does report a headache, and pain a 6/[address] left thigh. Dr. Owens ED performed bedside ultrasound and found only small pockets of infection still present too small additionally drain, as the wound is open and continues to drain, receiving rehydration was placed on vanco and Rocephin wound and blood cultures were collected. On admit patient denies chest pain, shortness in breath changes in vision, difficulty swallowing, speech impairment, weakness, numbness, tingling, difficulty with ambulation, recent falls, head injury, LOC, fever, body aches, chills, cough, recent exposure to illness, abdominal pain, nausea, vomiting, urinary incontinence/retention, dysuria, frequency, urgency, hematuria, bowel changes, constipation, incontinence, melena, recent changes to medication, illness, injury, or trauma. The time of admit patient's vitals are stable temp 98?, BP 112/79, HR 96, RR 18, O2 saturation 98% on room air. CBC and BMP are predominantly all within normal limits, CRP 7.3, procalcitonin 0.06. Patient admitted for observation for abscess cellulitis left thigh, after failing outpatient management. Discharge Providers Provider Date of admission: 06/02/22 22:39 Discharge Date: 06/04/22 Primary care physician: Akosua Hernandez PA-C Consults: 06/02/22 22:46 Consult to Dietitian, Adult Routine Comment: Reason For Exam: BMI 28.3 06/03/22 09:06 Consult to General Surgery Routine Comment: Consulting Provider: Ese Raman Reason for consultation: L thigh abscess Has provider been notified: Yes Discharge provider: Daren Carlton DO Summary Hospital Course Discharge Diagnosis: 1. Abscess/cellulitis, to left upper inner thigh, acute, present on admission 2. Alcohol use, daily, chronic, present on admission 3. Tobacco abuse, daily, chronic, present on admission 4. Overweight, mild,? acute on chronic, present on admission Hospital Course: This is a 61 year old male with PMH of EtOH use, smoking admitted to the hospital with a L thigh abscess and cellulitis. He had improvement in his cellulitis with ceftriaxone and vancomycin, and was taken to the OR for I&D on 06/04. There was a large abscess cavity and MADAN drain was left in place initially. MRSA swab was positive from his nares on admission. Cultures currently show a staph aureus though sensitivities are not finalized yet. Shortly after his I&D, he was found smoking in his room. When trying to remove his paraphernalia patient elected to leave against medical advice. I did discuss with the surgeon whom recommended the MADAN drain be removed prior to levaing. MADAN drain was removed after suture was cut, and bandage was placed over the top. Doxycycline was sent to a local pharmacy for continued antibiotics, return precautions were provided and the patient was appreciative. He was able to comprehend the risks including progression of his wound and bleeding given the size of his abscess cavity. He w as instructed to follow up with primary care provider as soon as possible to evaluate the appearance of his wound. Time Spent with Patient Time spent: Greater than 30 minutes Exam Vital Signs (past 8 hours): - 06/04/22 14:10 06/04/22 15:26 06/04/22 15:31 Temperature 97.5 F L 99.2 F Pulse Rate 71 67 69 Respiratory Rate 21 16 12 Blood Pressure 122/81 118/80 140/86 Pulse Oximetry 100 97 94 Oxygen Delivery Method Room Air Room Air Room Air 06/04/22 15:36 06/04/22 15:42 06/04/22 15:53 Temperature 98.5 F Pulse Rate 89 79 82 Respiratory Rate 18 16 14 Blood Pressure 139/89 116/83 145/93 H Pulse Oximetry 96 97 96 Oxygen Delivery Method Room Air Room Air Room Air 06/04/22 16:00 Temperature 97.9 F Pulse Rate 76 Respiratory Rate 16 Blood Pressure 107/79 Pulse Oximetry 98 Oxygen Delivery Method Oxygen Delivery Method Room Air Oxygen Flow Rate 0 Narrative Exam Narrative: General: Agitated male, clothing removed, attempting to remove MADAN, dripping blood on the floor. Ext: MADAN in place that was removed as noted above. Continued erythema though improved since admission. Objective Labs 06/04/22 05:29 06/04/22 05:29 Labs: Laboratory Results - last 24 hr 06/04/22 06/04/22 06/04/22 05:29 05:29 05:29 WBC 8.1 RBC 3.86 L Hgb 12.5 L Hct 36.4 L MCV 94.2 MCH 32.4 MCHC 34.4 RDW 12.5 Plt Count 193 Neut % (Auto) 62.0 Lymph % (Auto) 21.2 L [place] % (Auto) 10.2 Eos % (Auto) 5.8 H Baso % (Auto) 0.8 Neut # (Auto) 5000 Lymph # (Auto) 1700 [place] # (Auto) 800 Eos # (Auto) 500 H Baso # (Auto) 100 Sodium 136 L Potassium 4.2 Chloride 101 Carbon Dioxide 26 BUN 11 Creatinine 0.62 L Estimated GFR > 60 BUN/Creatinine Ratio 17.7 Glucose 95 Hemoglobin A1c Cancelled Calcium 8.4 Vancomycin Trough 06/04/22 12:28 WBC RBC Hgb Hct MCV MCH MCHC RDW Plt Count Neut % (Auto) Lymph % (Auto) [place] % (Auto) Eos % (Auto) Baso % (Auto) Neut # (Auto) Lymph # (Auto) [place] # (Auto) Eos # (Auto) Baso # (Auto) Sodium Potassium Chloride Carbon Dioxide BUN Creatinine Estimated GFR BUN/Creatinine Ratio Glucose Hemoglobin A1c Calcium Vancomycin Trough 13.1 [facility] Medical History Alcohol use Tobacco abuse Surgical History History of neck surgery Social History household members: family and none Smoking Status: Current every day smoker alcohol intake: current substance use type: former substance user additional social history: Lives alone, unemployed Discharge Plan Discharge Plan Patient Disposition: Left Against Medical Advice Provider Discharge Comment: Please follow up with primary care provider MADIHA to evaluate wound, and suture removal. Discharge orders & Medications Prescriptions: New doxycycline hyclate 100 mg tablet 100 mg PO BID 7 Days Qty: 14 0RF Follow up/Referrals: Akosua Hernandez PA-C [Primary Care Provider] - Diet/Activity/Treatments Diet: Diet as Tolerated Activity: As tolerated Visit Report/Discharge Packet Stand Alone Forms: Patient Portal/API, Stroke Signs & Symptoms Discharge Data Primary Care Provider: Akosua Hernandez I Quality VTE Deep Vein Thrombosis/Pulmonary Embolism Present on Admission: No
--- NOTE | 2022-06-04 18:22 | PC.NURSE ---
A&Ox4, walking in the room after surgery. noticed that the patient's bathroom smelled like cigarettes. I asked the patient if he smoked in the bathroom, pt said how can you tell?. I asked him if I can take his cigarettes but he refused, notified coordinator. Coordinator, Jaylon(RN), and I asked if we can search his belongings. pt got upset and said he was leaving. Educated pt regarding the consequence of leaving AMA,(infection,sepsis,etc). notified Dr. Carlton since he still had alexander drain. Drain removed. Pt refused to sign AMA paper. Called patient's sister and informed these events. Pt walked out of the room and took the stairs down. security notified.
[2022-06-04 22:48] LABS: x Labcorp Estim. Avg Glu (eAG) 108 mg/dL (.); x Labcorp Hemoglobin A1c 5.4 % (4.8-5.6)
== END 2022-06-04 17:43 | disposition left against medical advice (07) | DRG 603 ==
LOC: ED 22:39 → AC 22:40
PROVIDERS: Internal Medicine; Surgery; Admitting Provider Nurse Practitioner Family; Emergency Provider Emergency Medicine; PCP Physician Assistant; Referring Provider Emergency Medicine; Visit Provider Nurse Practitioner Family
PROC: 0J9M0ZZ Drainage of Left Upper Leg Subcutaneous Tissue and Fascia, Open Approach (ICD-10-PCS; principal; 2022-06-04 14:45)
DX: L02.416 Cutaneous abscess of left lower limb (principal); L03.116 Cellulitis of left lower limb; B95.62 Methicillin resistant Staphylococcus aureus infection as the cause of diseases classified elsewhere; E66.3 Overweight; F10.90 Alcohol use, unspecified, uncomplicated; F17.210 Nicotine dependence, cigarettes, uncomplicated; Z68.28 Body mass index [BMI] 28.0-28.9, adult; Z53.29 Procedure and treatment not carried out because of patient's decision for other reasons; Z20.822 Contact with and (suspected) exposure to COVID-19
CPT/HCPCS: 10060; 36415; 76882; 80048; 80202; 83036; 84145; 85025; 85651; 86140; 87040; 87070; 87075; 87077; 87147; 87186; 87205; 87635; 87797; 96365; 99232; 99283; 99284; 99406; C9803; J0696; J1170; J1650; J2250; J2405; J2704; J3010

== ENCOUNTER 2022-06-04 19:23 | Emergency (ER) | payer MEDICARE, SELFPAY ==
[2022-06-03 00:10] VITALS: BMI 28.3
[2022-06-04 19:37] VITALS: BP 126/68; PULSE 94; RESP 20; TEMP 36.8; O2SAT 99; BMI 26.9
[2022-06-04 22:23] LABS: Add Manual Diff / Slide Review NO; Basophils Absolute Auto 100 /uL (0-100); Basophils Percent Auto 0.6 % (0-2); Eosinophils Absolute Auto 400 /uL (0-450); Eosinophils Percent Auto 3.9 % (2-4); Hematocrit 38.2 % (41-53); Hemoglobin 13.1 g/dL (13.5-17.5); Lymphocytes Absolute Auto 1500 /uL (1100-4500); Lymphocytes Percent Auto 16.6 % (25-40); Mean Corpuscular HGB Conc 34.2 % (30-36); Mean Corpuscular Hemoglobin 32.2 PG (26-34); Monocytes Absolute Auto 800 /uL (0-900); Monocytes Percent Auto 8.1 % (3-14); Neutrophils Absolute Auto 6600 /uL (1500-7000); Neutrophils Percent Auto 70.8 % (50-75); Platelet Count 213 X10^3/uL (150-400); Red Blood Cell Count 4.07 X10^6/uL (4.5-5.9); Red Cell Distribution Width 12.7 % (11.6-14.8); White Blood Cell Count 9.3 X10^3/uL (4.5-11.0)
[2022-06-04 22:39] LABS: Alanine Aminotransferase 20 IU/L (<50); Albumin 4.1 g/dL (3.5-5.0); Albumin Globulin Ratio 1.1 (1.0-2.8); Alkaline Phosphatase 60 U/L (38-126); Aspartate Aminotransferase 24 IU/L (17-59); BUN Creatinine Ratio 11.6 (6-22); Bilirubin Total 0.6 mg/dL (0.2-1.3); Blood Urea Nitrogen 8 mg/dL (9-20); Calcium 8.8 mg/dL (8.4-10.2); Carbon Dioxide 31 mmol/L (22-32); Chloride 96 mmol/L (98-107); Estimated Glomerular Filt Rate > 60 mL/min (>60); Globulin 3.7 g/dL (1.7-4.1); Glucose 91 mg/dL (80-110); HEMOLYSIS < 15 (0-50); Sodium 135 mmol/L (137-145); Total Protein 7.8 g/dL (6.3-8.2)
--- NOTE | 2022-06-05 00:40 | ED_ITS ---
HPI - Skin/Abscess/Foreign Bdy General Chief complaint: Skin/Abscess/Foreign Body Stated complaint: states he is back Time Seen by Provider: 06/04/22 20:17 Source: patient Mode of arrival: Ambulatory Limitations: no limitations History of Present Illness HPI narrative: This is a 61-year-old male daily tobacco, alcohol, remote history substance abuse. Patient was admitted for abscess of the left upper thigh, had been on oral antibiotics was admitted here taken to the OR by Dr. Raman had incision and drainage and left Against Medical Advice several hours prior to my evaluation. Patient had a MADAN drain present that was removed prior to patient leaving. He was discharged with doxycycline which patient states he picked up. Patient returns he states still painful, no drainage, he does not wish to be admitted to the same medical team. We discussed this is a small hospital there are alternatives in terms of the groups that are available there is different providers but the same group. He states that he would not want to talk to any of the medical personnel and that he would just 1 room to stay in. When asked directly if he wanted medical treatment here at this hospital he indicates that he does not. He does state that he would like a cab voucher for transport to a hotel in a hotel room. He states an advocate or social service agency director was supposed to discuss this with him. We discussed that they are not present here in the evenings or overnight. Patient does not wish to stay. Related Data Previous Rx's Medication Instructions Recorded doxycycline hyclate 100 mg tablet 100 mg PO BID 7 days #14 tabs 06/04/22 Allergies Allergy/AdvReac Type Severity Reaction Status Date / Time No Known Drug Allergies Allergy Verified 06/04/22 19:40 Review of Systems Review of Systems ROS Unobtainable: All systems reviewed & are unremarkable except as noted in HPI and below Patient History Medical History Alcohol use Tobacco abuse Surgical History History of neck surgery Social History household members: family and none Smoking Status: Current every day smoker alcohol intake: current substance use type: former substance user additional social history: Lives alone, unemployed Smoking Status: Current every day smoker alcohol intake frequency: 0-2 drinks per day Substance Use Type: does not use Exam Narrative Exam Narrative: GENERAL: Alert and oriented x three, male in mild distress, patient is pacing in the room when I arrived. HEENT: Head normocephalic, atraumatic, EOMI, pupils reactive, face symmetric, moist mucous membranes NECK: Supple, full range of motion CARDIOVASCULAR: Regular rate and rhythm without murmurs, rubs or gallops. RESPIRATORY: Breath sounds equal bilaterally, no wheezes rales or rhonchi. ABDOMEN: Soft, nontender. Normoactive bowel sounds all 4 quadrants. No guarding or rebound, rigidity, no mass : No CVA tenderness EXTREMITIES: Normal range of motion, no clubbing. Neurovascularly intact. Patient has larger area of swelling in his left right inner thigh with erythema, there are 2 small sutures easily appreciable and a smaller opening. There is no active drainage. The areas full and warm to touch. Erythema does not track all the way down the leg. Patient has full range of motion, normal muscle strength and is able to take off his pants lay on the bed externally rotate leg for examination. NEUROLOGICAL: Cranial nerves II through XII grossly intact. Moving all extremities. Normal gait. SKIN: Warm, dry, no petechiae. Skin exam normal except for left upper extremity which is noted above. Initial Vital Signs Initial Vital Signs: Vital Signs Temperature 98.3 F 06/04/22 19:37 Pulse Rate 94 H 06/04/22 19:37 Respiratory Rate 20 06/04/22 19:37 Blood Pressure 126/68 06/04/22 19:37 Pulse Oximetry 99 06/04/22 19:37 Oxygen Delivery Method Room Air 06/04/22 19:37 Course Orders Ordered: ED Orders 06/04/22 22:05 CBC Auto Diff [Complete Blood Count AUTO DIFF] Stat CMP [Comprehensive Metabolic Panel] Stat Vital Signs Vital signs: Vital Signs - 8 hr 06/05/22 01:14 Temperature 98 F Pulse Rate 76 Respiratory Rate 18 Blood Pressure 140/82 Pulse Oximetry 97 Oxygen Delivery Method Room Air MDM - Skin/Abscess/Foreign Bdy Lab Data 06/04/22 22:05 06/04/22 22:05 Labs: Lab Results 06/04/22 06/04/22 Range/Units 22:05 22:05 WBC 9.3 (4.5-11.0) X10^3/uL RBC 4.07 L (4.5-5.9) X10^6/uL Hgb 13.1 L (13.5-17.5) g/dL Hct 38.2 L (41-53) % MCV 94.0 (80-100) fL MCH 32.2 (26-34) PG MCHC 34.2 (30-36) % RDW 12.7 (11.6-14.8) % Plt Count 213 (150-400) X10^3/uL Neut % (Auto) 70.8 (50-75) % Lymph % (Auto) 16.6 L (25-40) % [place] % (Auto) 8.1 (3-14) % Eos % (Auto) 3.9 (2-4) % Baso % (Auto) 0.6 (0-2) % Neut # (Auto) 6600 (9990-7283) /uL Lymph # (Auto) 1500 (1843-7203) /uL [place] # (Auto) 800 (0-900) /uL Eos # (Auto) 400 (0-450) /uL Baso # (Auto) 100 (0-100) /uL Sodium 135 L (137-145) mmol/L Potassium 4.0 (3.4-5.1) mmol/L Chloride 96 L (98-107) mmol/L Carbon Dioxide 31 (22-32) mmol/L BUN 8 L (9-20) mg/dL Creatinine 0.69 (0.66-1.25) mg/dL Estimated GFR > 60 (>60) mL/min BUN/Creatinine Ratio 11.6 (6-22) Glucose 91 (80-110) mg/dL Calcium 8.8 (8.4-10.2) mg/dL Total Bilirubin 0.6 (0.2-1.3) mg/dL AST 24 (17-59) IU/L ALT 20 (<50) IU/L Alkaline Phosphatase 60 (38-126) U/L Total Protein 7.8 (6.3-8.2) g/dL Albumin 4.1 (3.5-5.0) g/dL Globulin 3.7 (1.7-4.1) g/dL Albumin/Globulin Ratio 1.1 (1.0-2.8) [facility] Narrative Medical decision making narrative: This is a 61-year-old male who presents with complaint of left thigh abscess, 2 sutures placed and patient had left just previous against medical advice. After some discussion patient does not wish to be admitted here, I did discuss with hospitalist and our general surgeon: Hospitalist defers to general surgeon if patient needs to be readmitted. General surgeon feels patient can attempt to improve at home if sutures are removed and allowed to drain. Patient I once again discussed and he does not wish to be admitted he does not wish to be cared for by her medical teams he does want a place to stay. He does not currently want me to remove the sutures as he understands that it would drain and he does not want that miss. He has picked up the antibiotics including doxycycline and states that he will take these. Patient is requesting some social help such as voucher for hotel room. Discussed I can not provide this in the middle the night we can sometimes provide cab voucher but they are not currently running locally. Patient appears medically stable for discharge. Discharge Plan Departure Patient Disposition: Home Clinical Impression: Abscess of left leg Activity Restrictions/Additional Instructions: You have an abscess of your left leg, the surgeon recommended at least taking the sutures out to let it drain. Take the antibiotics that you picked up until gone. There are still cultures pending if these show resistant to the antibiotic you were on we will try to contact you to change it. Please return or go to the nearest hospital for fevers, increasing swelling, redness pain, new weakness, numbness or other changes. Prescriptions: No Action doxycycline hyclate 100 mg tablet 100 mg PO BID 7 Days Qty: 14 0RF Referrals: Akosua Hernandez PA-C [Primary Care Provider] - Stand Alone Forms: Patient Portal/API
[2022-06-05 01:14] VITALS: BP 140/82; PULSE 76; RESP 18; TEMP 36.6; O2SAT 97
== END 2022-06-05 01:16 | disposition home or self-care (01) ==
PROVIDERS: Emergency Provider Emergency Medicine; PCP Physician Assistant
DX: L02.416 Cutaneous abscess of left lower limb (principal)
CPT/HCPCS: 36415; 80053; 85025

== ENCOUNTER 2022-06-05 18:28 | Observation (INO) | payer MEDICARE, MEDICAID, SELFPAY ==
[2022-06-05] VITALS (10 sets, daily range): BP systolic 108–133; BP diastolic 56–79; PULSE 78–100; RESP 18–24; TEMP 36.8; O2SAT 96–100; BMI 27.1
--- NOTE | 2022-06-05 19:01 | ED_ITS ---
HPI - Skin/Abscess/Foreign Bdy General Chief complaint: Skin/Abscess/Foreign Body Stated complaint: Left AMA from surgery t-1 Time Seen by Provider: 06/05/22 18:55 Source: patient and other Mode of arrival: Ambulatory History of Present Illness HPI narrative: This is a 61-year-old male with history of tobacco and alcohol use who left [facility] medical [facility] for left upper inner thigh abscess/cellulitis that had I&D by General surgery. He was receiving Rocephin and vancomycin in the hospital. Patient was seen last night at that time he was not willing to be hospitalized but his area of swelling has been increasing and he presents now willing to stay. He denies fevers, no chest pain or shortness of breath, no nausea or vomiting. He has had a little bit of bloody drainage noted on his pants he states he has not looked at it. States it is painful. It does appear to have increased in size and erythema in comparison to when he was here last night and markings from his hospitalization extending beyond these borders. Patient is ambulatory and has been using his leg without issue no numbness, tingling or weakness. He did fill the prescription for doxycycline he had at least 1 dose in the past 24 hours. Patient then walked about 7 miles to his vehicle. 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 Patient does use tobacco regularly, drinks alcohol, denies illicit. Related Data Previous Rx's Medication Instructions Recorded doxycycline hyclate 100 mg tablet 100 mg PO BID 7 days #14 tabs 06/04/22 Allergies Allergy/AdvReac Type Severity Reaction Status Date / Time No Known Drug Allergies Allergy Verified 06/05/22 18:38 Review of Systems Review of Systems ROS Unobtainable: All systems reviewed & are unremarkable except as noted in HPI and below Patient History Medical History Alcohol use Tobacco abuse Surgical History History of neck surgery Social History household members: significant other and none Smoking Status: Current every day smoker alcohol intake: current substance use type: former substance user additional social history: Lives alone, unemployed Smoking Status: Current every day smoker alcohol intake frequency: 0-2 drinks per day Substance Use Type: does not use Exam Narrative Exam Narrative: GENERAL: Alert and oriented x three, male in mild distress HEENT: Head normocephalic, atraumatic, EOMI, pupils reactive, face symmetric, moist mucous membranes NECK: Supple, full range of motion CARDIOVASCULAR: Regular rate and rhythm without murmurs, rubs or gallops. RESPIRATORY: Breath sounds equal bilaterally, no wheezes rales or rhonchi. ABDOMEN: Soft, nontender. Normoactive bowel sounds all 4 quadrants. No guarding or rebound, rigidity, no mass : No CVA tenderness EXTREMITIES: Normal range of motion, no clubbing. Patient has significant swelling of the left inner thigh with erythema, sutures are both in place there appears to be more swelling than was present when he was here last night and erythema is clearly extending several cm beyond the area that was demarcated. Large area approximately 10 x 10 cm. There is some fullness there is no active drainage but there is a little bit of dried blood and the area is warm to touch. Neurovascularly intact. Patient has 2+ tibial pulse. Full range of motion. NEUROLOGICAL: Cranial nerves II through XII grossly intact. Moving all extremities SKIN: Warm, dry, no petechiae, no rashes or lesions other than noted above. Initial Vital Signs Initial Vital Signs: Vital Signs Temperature 98.2 F 06/05/22 18:38 Pulse Rate 100 H 06/05/22 18:38 Respiratory Rate 18 06/05/22 18:38 Blood Pressure 113/73 06/05/22 18:38 Pulse Oximetry 99 06/05/22 18:38 Oxygen Delivery Method Room Air 06/05/22 18:38 Course Orders Ordered: ED Orders 06/05/22 19:20 Blood Culture Stat Complete Blood Count AUTO DIFF Stat Comprehensive Metabolic Panel Stat Lactate (Lactic Acid) Stat Procalcitonin Stat 06/05/22 21:25 COVID19 -Nasal RAPID Stat 06/06/22 05:00 Basic Metabolic Panel Routine Complete Blood Count AUTO DIFF Routine Acetaminophen (Acetaminophen 325 Mg Tablet) 650 mg PO Q6H PRN PRN Reason: Fever/Mild Pain (1-3) Hydrocodone Bitart/Acetaminophen (Hydrocodone/Acet 5/325 Tablet) 1 tab PO Q4HR PRN PRN Reason: Pain, Moderate (4-6) Last Admin: 06/05/22 23:08 Dose: 1 tab Documented By: MS Enoxaparin Sodium (Enoxaparin 40 Mg/0.4 Ml Syringe) 40 mg SUBCUT DAILY [facility] Folic Acid (Folic Acid 1 Mg Tablet) 1 mg PO DAILY [facility] Lactated Ringer's (Lactated Ringers) 1,000 mls @ 100 mls/hr IV CONT EFE Last Admin: 06/05/22 23:17 Dose: 100 mls/hr Documented By: Lorazepam (Lorazepam 1 Mg Tablet) 0 mg PO CIWAPRN PRN; Protocol PRN Reason: Alcohol Withdrawal Multivitamins (Multivitamin 1 Tablet) 1 tab PO DAILY [facility] Naloxone HCl (Naloxone 0.4 Mg/Ml Vial) 0.2 mg IV Q2MIN PRN PRN Reason: Opiate Reversal Nicotine (Nicotine 14 Patch) 14 mg TOP DAILY [facility] Ondansetron HCl (Ondansetron 4 Mg/2 Ml Inj) 4 mg IV Q8HR PRN PRN Reason: Nausea And Vomiting Thiamine HCl (Thiamine 100 Mg Tablet) 100 mg PO DAILY [facility] Stop: 06/09/22 09:01 Vancomycin HCl (Vancomycin Per Pharmacy) 1 request MISC NOW ONE Stop: 06/05/22 22:21 Discontinued Medications Ceftriaxone Sodium 2,000 mg/ (Sodium Chloride) 100 mls @ 200 mls/hr IV NOW ONE Stop: 06/05/22 19:14 Last Infusion: 06/05/22 20:24 Dose: 0 mls/hr Documented By: Admin: 06/05/22 19:45 Dose: 200 mls/hr Documented By: RB Vancomycin HCl/Dextrose (Vancomycin) 1,500 mg in 300 mls @ 200 mls/hr IV NOW ONE Stop: 06/05/22 20:42 Last Infusion: 06/05/22 21:58 Dose: 0 mls/hr Documented By: Admin: 06/05/22 20:25 Dose: 200 mls/hr Documented By: RB Vital Signs Vital signs: Vital Signs - 8 hr 06/05/22 19:35 06/05/22 20:00 06/05/22 19:40 Pulse Rate 78 82 79 Respiratory Rate 18 24 23 Blood Pressure 114/68 110/63 Pulse Oximetry 98 99 99 Oxygen Delivery Method Room Air Room Air Room Air 06/05/22 19:45 06/05/22 20:15 06/05/22 20:30 Pulse Rate 79 80 81 Respiratory Rate 23 20 23 Blood Pressure 124/73 129/79 120/75 Pulse Oximetry 99 100 100 Oxygen Delivery Method Room Air Room Air MDM - Skin/Abscess/Foreign Bdy Lab Data 06/05/22 19:20 06/05/22 19:20 Labs: Lab Results 06/05/22 06/05/22 06/05/22 Range/Units 19:20 19:20 19:20 WBC 10.5 (4.5-11.0) X10^3/uL RBC 4.28 L (4.5-5.9) X10^6/uL Hgb 13.8 (13.5-17.5) g/dL Hct 39.7 L (41-53) % MCV 92.7 (80-100) fL MCH 32.2 (26-34) PG MCHC 34.7 (30-36) % RDW 12.6 (11.6-14.8) % Plt Count 272 (150-400) X10^3/uL Neut % (Auto) 74.4 (50-75) % Lymph % (Auto) 13.5 L (25-40) % [place] % (Auto) 9.7 (3-14) % Eos % (Auto) 1.8 L (2-4) % Baso % (Auto) 0.6 (0-2) % Neut # (Auto) 7800 H (6631-9032) /uL Lymph # (Auto) 1400 (5852-0020) /uL [place] # (Auto) 1000 H (0-900) /uL Eos # (Auto) 200 (0-450) /uL Baso # (Auto) 100 (0-100) /uL Sodium 136 L (137-145) mmol/L Potassium 4.1 (3.4-5.1) mmol/L Chloride 97 L (98-107) mmol/L Carbon Dioxide 29 (22-32) mmol/L BUN 12 (9-20) mg/dL Creatinine 0.67 (0.66-1.25) mg/dL Estimated GFR > 60 (>60) mL/min BUN/Creatinine Ratio 17.9 (6-22) Glucose 99 (80-110) mg/dL Lactate 1.3 (0.7-2.1) mmol/L Calcium 9.2 (8.4-10.2) mg/dL Total Bilirubin 0.9 (0.2-1.3) mg/dL AST 26 (17-59) IU/L ALT 21 (<50) IU/L Alkaline Phosphatase 77 (38-126) U/L Total Protein 8.7 H (6.3-8.2) g/dL Albumin 4.5 (3.5-5.0) g/dL Globulin 4.2 H (1.7-4.1) g/dL Albumin/Globulin Ratio 1.1 (1.0-2.8) Procalcitonin 0.07 (<0.5) ng/mL MDM Narrative Medical decision making narrative: This is a 61-year-old male who was recently hospitalized and had incision and drainage and IV antibiotics for abscess of the left thigh, patient left Against Medical Advice his MADAN drain was removed prior to leaving by the hospitalist and patient was actually seen last night was not willing to be readmitted but has since continued to worsen and has re-presented. Patient is slightly tachycardic he otherwise does not appear to be hypotensive, febrile but clearly has significant worsening and redness extending beyond the prior borders and increasing swelling at the site. Patient's cultures were was positive for MRSA, sensitive to vancomycin. Patient's blood cultures are pending. Body fluid culture from the OR is still pending. Patient restarted with vanco covered with Rocephin for broad-spectrum. Dr. Loving, asked for hospitalist admit as patient was here with alcohol withdrawal and some additional issues, plan to restart antibiotics, no imaging at this time he will see the patient and see if they need to take him back to the OR. Dr. Michaels, hospitalist accepts for admission. Reviewed recommendations from General surgery, agrees with plan. Discharge Plan Departure Patient Disposition: Admitted As Inpatient Clinical Impression: Cellulitis and abscess of left leg Admit Date/Time: 06/05/22 20:45 Admit Provider: Clyde Michaels
[2022-06-05 19:45] LABS: Add Manual Diff / Slide Review NO; Basophils Absolute Auto 100 /uL (0-100); Basophils Percent Auto 0.6 % (0-2); Eosinophils Absolute Auto 200 /uL (0-450); Eosinophils Percent Auto 1.8 % (2-4); Hematocrit 39.7 % (41-53); Hemoglobin 13.8 g/dL (13.5-17.5); Lactate (Lactic Acid) 1.3 mmol/L (0.7-2.1); Lymphocytes Absolute Auto 1400 /uL (1100-4500); Lymphocytes Percent Auto 13.5 % (25-40); Mean Corpuscular HGB Conc 34.7 % (30-36); Mean Corpuscular Hemoglobin 32.2 PG (26-34); Mean Corpuscular Volume 92.7 fL (80-100); Monocytes Absolute Auto 1000 /uL (0-900); Monocytes Percent Auto 9.7 % (3-14); Neutrophils Absolute Auto 7800 /uL (1500-7000); Neutrophils Percent Auto 74.4 % (50-75); Platelet Count 272 X10^3/uL (150-400); Red Blood Cell Count 4.28 X10^6/uL (4.5-5.9); Red Cell Distribution Width 12.6 % (11.6-14.8); White Blood Cell Count 10.5 X10^3/uL (4.5-11.0)
[2022-06-05] MEDS: cefTRIAXone 2,000 MG in SODIUM CHLORIDE 0.9% 100 ML 200 MG IV (19:45)
[2022-06-05 19:46] LABS: Alanine Aminotransferase 21 IU/L (<50); Albumin 4.5 g/dL (3.5-5.0); Albumin Globulin Ratio 1.1 (1.0-2.8); Alkaline Phosphatase 77 U/L (38-126); Aspartate Aminotransferase 26 IU/L (17-59); BUN Creatinine Ratio 17.9 (6-22); Bilirubin Total 0.9 mg/dL (0.2-1.3); Blood Urea Nitrogen 12 mg/dL (9-20); Calcium 9.2 mg/dL (8.4-10.2); Carbon Dioxide 29 mmol/L (22-32); Chloride 97 mmol/L (98-107); Estimated Glomerular Filt Rate > 60 mL/min (>60); Globulin 4.2 g/dL (1.7-4.1); Glucose 99 mg/dL (80-110); HEMOLYSIS < 15 (0-50); Potassium 4.1 mmol/L (3.4-5.1); Sodium 136 mmol/L (137-145); Total Protein 8.7 g/dL (6.3-8.2)
--- NOTE | 2022-06-05 19:54 | CM.IDA ---
Addendum entered by Juliann Almanza 06/05/22 20:02: Prior to patient's pending admission, [employer] AD[employer]IST[employer] calls [employer] regarding Motel voucher after hours, it is reported that [employer] only provide vouchers to victims of crimes. [employer] ADMINISTRATOR calls [facility] intermediate and leaves . [employer] ADMINISTRATOR calls [facility], does not leave due to intermediate business hours. BERE Hancock Original Note: Initial DCP Assessment Patient is 61 y/o male who presents due to concern for cellulitis and abscess of left leg. Patient was admitted on 06/02/22 for similar concern and had I&D surgery then proceeded to leave AMA after confrontation about patient smoking cigarettes in bathroom of room. Patient's PCP is Akosua Hernandez, patient has [facility] and [facility] insurance. [employer] ADMINISTRATOR enters room to meet with patient, present in room is patient's significant other Dalila. Dalila reports she lives with family in [place] and patient cannot live there. Patient endorses he is homeless, there is no room at his sister's house and his trailer does not have running water or electricity. Patient endorses interest in [facility] Motel Voucher program, [employer] ADMINISTRATOR explains that DCP team will see if patient meets criteria upon d/c but [employer] ADMINISTRATOR repeats importance of patient staying at until medical clearance. Patient endorses independence with ADLs, presents as A/Ox4, states that he has a car and can drive. Patient endorses he receives SSI disability and food stamps. [employer] ADMINISTRATOR provides patient with list of housing and intermediate resources. Patient will need Medicaid taxi/ taxi voucher or receive ride from significant other. Plan: Patient will likely be admitted by hospitalist, surgeon to consult regarding patient's abscess and cellulitis. Patient interested in [employer] Motel voucher upon d/c BERE Hancock Discharge Planning/Care Management CM Discharge Assessment Start: 06/05/22 19:51 Freq: Status: Active Protocol: Document 06/05/22 19:51 LN (Rec: 06/05/22 19:54 LN [id number]) Discharge Planning Assessment Assigned Technology Applications Teacher BERE Humphreys DPOA/Assigned Designee Name None/ Informally Sister Quynh Contact Information [phone] Advance Directives? No Advance Directives on File No History Provided By Patient,Medical Record Has Patient been admitted in last 30 Yes days? Comment Patient was admitted 06/02/22 and left AMA on 06/04/22 Prior Living Arrangements Homeless Household Members none Type of transporation used prior to Drives own vehicle admit Independent with ADL's Yes Is patient alert and oriented? Yes Comment interested in [facility] Motel Voucher Program Patient provided housing and intermediate resource information Discharge Plan Home Transportation Arrangement Either medicaid taxi or his sister Referrals Initiated Other Additional Comment Motel Voucher program referral Please Provide Date Initial DC 06/05/22 Assessment Was Performed
--- NOTE | 2022-06-05 19:55 | PC.NURSE ---
Patient arrives with redness in inner left thigh from pelvic crease to the top of the knee on the front and down to the bottom of behind the knee and then up the back side of the left thigh towards the hip. Previous outline was faded and redness extends past the border from the 10th. Using skin marker this RN outlined the new borders of patient redness. Surgical wound stitches are in place.
[2022-06-05 20:02] LABS: Procalcitonin 0.07 ng/mL (<0.5)
[2022-06-05] MEDS: VANCOMYCIN 1,500 MG/300 ML PIGGYBACK 200 MG IV (20:25)
--- NOTE | 2022-06-05 20:42 | P.HP_ITS ---
History of Present Illness History of Present Illness Date Patient Seen: 06/05/22 Time Patient Seen: 20:30 Chief complaint: Left AMA from surgery t-1 Narrative: Mr. Boateng is a 61M with H etoh abuse, tobacco abuse who presents to the hospital with left upper leg pain, swelling and erythema. He was admitted on 06/02 and was found to have an abscess in his left inner/upper thigh. He was started on antibiotics and had I and D done on 06/04. Sutures were done, and MADAN drain was in place. Afterwards per records patient was found to be smoking in the hospital. He was asked to remove this paraphernalia and he then decided to leave against medical advice. He was given a prescription for doxycycline. He has only taken one pill. He has not had alcohol since being discharged. He comes back to the hospital today because of worsening erythema of his leg and subjective chills. His pain in his leg is worsening. He has no documented fevers. In the ED workup was done, vitals notable for afebrile, heart rate 60s-70s, blood pressure 120s/80s, o2 sat 100% on room air. Labs reviewed by me and notable for WBC 8.1, hgb 12.5, plts 193. Na 136, creatinine 0.62. Surgery was consulted and recommended antibiotics and will evaluate him in the morning for possible return to the OR, but said additional imaging not necessary at this time. He was ordered for antibiotics and admitted for further treatment. COUNTS INCLUDE 234 BEDS AT THE [facility] Medical History Alcohol use Tobacco abuse Surgical History History of neck surgery Social History household members: none Smoking Status: Current every day smoker alcohol intake: current substance use type: former substance user additional social history: Lives alone, unemployed Meds Home Medications and Allergies Home Medications Medication Instructions Recorded Confirmed Type doxycycline hyclate 100 mg tablet 100 mg PO BID 7 days #14 tabs 06/04/22 Rx Allergies Allergy/AdvReac Type Severity Reaction Status Date / Time No Known Drug Allergies Allergy Verified 06/05/22 18:38 Review of Systems Review of Systems Narrative: 14 systems reviewed and negative aside from what is noted in HPI Exam Vital Signs (past 8 hours): - 06/05/22 18:38 06/05/22 19:35 06/05/22 19:40 Temperature 98.2 F Pulse Rate 100 H 78 79 Respiratory Rate 18 18 23 Blood Pressure 113/73 114/68 Pulse Oximetry 99 98 99 Oxygen Delivery Method Room Air Room Air Room Air 06/05/22 19:45 Temperature Pulse Rate 79 Respiratory Rate 23 Blood Pressure 124/73 Pulse Oximetry 99 Oxygen Delivery Method Room Air Oxygen Delivery Method Room Air Narrative Exam Narrative: GEN: no acute distress HEENT: moist mucous membranes, PERRL NECK: trachea midline, no JVD PULM: clear bilaterally, normal work of breathing CV: regular rate and rhythm, no murmurs ABD: soft, nontender, nondistended, no organomegaly EXT: warm and well perfused, left lower extremity with inner thigh erythema and welling with circular area of induration of approximately 10cm, sutures in place, no pus noted NEURO: awake, alert, oriented, with no focal deficits Objective Labs 06/05/22 19:20 06/05/22 19:20 Labs: Laboratory Results - last 24 hr 06/05/22 06/05/22 06/05/22 19:20 19:20 19:20 WBC 10.5 RBC 4.28 L Hgb 13.8 Hct 39.7 L MCV 92.7 MCH 32.2 MCHC 34.7 RDW 12.6 Plt Count 272 Neut % (Auto) 74.4 Lymph % (Auto) 13.[address] [place] % (Auto) 9.7 Eos % (Auto) 1.8 L Baso % (Auto) 0.6 Neut # (Auto) 7800 H Lymph # (Auto) 1400 [place] # (Auto) 1000 H Eos # (Auto) 200 Baso # (Auto) 100 Sodium 136 L Potassium 4.1 Chloride 97 L Carbon Dioxide 29 BUN 12 Creatinine 0.67 Estimated GFR > 60 BUN/Creatinine Ratio 17.9 Glucose 99 Lactate 1.3 Calcium 9.2 Total Bilirubin 0.9 AST 26 ALT 21 Alkaline Phosphatase 77 Total Protein 8.7 H Albumin 4.5 Globulin 4.2 H Albumin/Globulin Ratio 1.1 Procalcitonin 0.07 Assessment & Plan Assessment & Plan narrative: 1. Acute cellulitis with recent I+D of abscess -patient left AMA after recent I and D of a MRSA abscess -cultures showing MRSA sensitive to doxy, bactrim, vanco, linezolid -was on oral doxycycline on discharge, he was not taking this medication as prescribed -for now will treat with IV vancomycin -follow up final culture results -surgery consulted to evaluate for taking back to OR for additional surgical treatment of abscess -NPO at midnight -IV fluids ordered for overnight 2. Chronic alcohol use -placed on ciwa protocol -not currently withdrawing -ordered mvi, thiamine, folate 3. Tobacco abuse -nicotine patch I have discussed plan and obtained history from patient and friend at bedside. I have reviewed labs, previous imaging, labs and medical notes from recent admission. I have discussed plan of care with ED physician and bedside nurse. CODE: Full Proxy: Quynh Huddleston, sister [facility] - Meds 'Current medications' to include all prescriptions, [id number] products, herbals, cannabis/cannabidiol products, and vitamin/mineral/dietary (nutritional) supplements. I have utilized all available resources to obtain, update, or review the patient?s current medications. [If Yes, STOP here]: Yes
[2022-06-05 21:43] LABS: COVID19 -Nasal RAPID Negative (Negative)
[2022-06-05] MEDS: HYDROCODONE/ACET 5/325 TABLET 1 TAB PO (23:08)
[2022-06-05] MEDS: LACTATED RINGERS 1,000 ML 100 ML IV (23:17)
[2022-06-06] VITALS (17 sets, daily range): BP systolic 90–126; BP diastolic 60–92; PULSE 62–82; RESP 11–21; TEMP 36–36.8; O2SAT 95–100; BMI 27.1
--- NOTE | 2022-06-06 02:34 | PC.ADMIT ---
[id number] Admission Note: The patient,Dilip Boateng,61 y/o, was given written information regarding hospital policies, unit procedures and contact persons. Patient's smoking status: Current every day smoker. Vital Signs - 8 hr 06/05/22 18:38 06/05/22 19:35 06/05/22 20:00 Temperature 98.2 F Pulse Rate 100 H 78 82 Respiratory Rate 18 18 24 Blood Pressure 113/73 114/68 110/63 Pulse Oximetry 99 98 99 Oxygen Delivery Method Room Air Room Air Room Air Oxygen Flow Rate 06/05/22 19:40 06/05/22 19:45 06/05/22 20:15 Temperature Pulse Rate 79 79 80 Respiratory Rate 23 23 20 Blood Pressure 124/73 129/79 Pulse Oximetry 99 99 100 Oxygen Delivery Method Room Air Room Air Oxygen Flow Rate 06/05/22 20:30 06/05/22 21:00 06/05/22 21:30 Temperature Pulse Rate 81 79 82 Respiratory Rate 23 21 21 Blood Pressure 120/75 133/79 113/59 L Pulse Oximetry 100 99 100 Oxygen Delivery Method Room Air Room Air Oxygen Flow Rate 06/05/22 22:00 06/06/22 00:00 Temperature 97.5 F L Pulse Rate 79 72 Respiratory Rate 23 18 Blood Pressure 108/56 L 104/63 Pulse Oximetry 96 97 Oxygen Delivery Method Room Air Oxygen Flow Rate 0
[2022-06-06] MEDS: HYDROCODONE/ACET 5/325 TABLET 1 TAB PO ×4 (04:13→20:12)
[2022-06-06 06:20] LABS: Add Manual Diff / Slide Review NO; Basophils Absolute Auto 0 /uL (0-100); Basophils Percent Auto 0.2 % (0-2); Eosinophils Absolute Auto 400 /uL (0-450); Eosinophils Percent Auto 5.1 % (2-4); Hematocrit 38.3 % (41-53); Lymphocytes Absolute Auto 1700 /uL (1100-4500); Lymphocytes Percent Auto 22.3 % (25-40); Mean Corpuscular HGB Conc 33.9 % (30-36); Mean Corpuscular Hemoglobin 31.7 PG (26-34); Mean Corpuscular Volume 93.4 fL (80-100); Monocytes Absolute Auto 1200 /uL (0-900); Monocytes Percent Auto 15.6 % (3-14); Neutrophils Absolute Auto 4300 /uL (1500-7000); Neutrophils Percent Auto 56.8 % (50-75); Platelet Count 249 X10^3/uL (150-400); Red Blood Cell Count 4.11 X10^6/uL (4.5-5.9); Red Cell Distribution Width 12.7 % (11.6-14.8); White Blood Cell Count 7.6 X10^3/uL (4.5-11.0)
[2022-06-06 06:28] LABS: BUN Creatinine Ratio 23.5 (6-22); Blood Urea Nitrogen 16 mg/dL (9-20); Calcium 8.7 mg/dL (8.4-10.2); Carbon Dioxide 33 mmol/L (22-32); Chloride 101 mmol/L (98-107); Estimated Glomerular Filt Rate > 60 mL/min (>60); Glucose 104 mg/dL (80-110); HEMOLYSIS < 15 (0-50); Potassium 4.8 mmol/L (3.4-5.1); Sodium 138 mmol/L (137-145)
--- NOTE | 2022-06-06 07:26 | P.PN_ITS ---
Subjective Subjective Interval history: Patient still having swelling and pain of the right inner thigh. Dr. Bateman to assess today if OR washout needed. Exam Vital Signs (past 8 hours): - 06/06/22 00:00 06/06/22 05:16 Temperature 97.5 F L 96.8 F L Pulse Rate 72 73 Respiratory Rate 18 17 Blood Pressure 104/63 90/60 Pulse Oximetry 97 97 Oxygen Flow Rate 0 0 Oxygen Delivery Method Room Air Oxygen Flow Rate 0 Narrative Exam Narrative: GEN: no acute distress HEENT: moist mucous membranes, PERRL NECK: trachea midline, no JVD PULM: clear bilaterally, normal work of breathing CV: regular rate and rhythm, no murmurs ABD: soft, nontender, nondistended, no organomegaly EXT: warm and well perfused, left lower extremity with inner thigh erythema, pain and swelling with circular area of induration of approximately 10cm, sutures in place, no pus noted NEURO: awake, alert, oriented, with no focal deficits Objective Labs 06/06/22 06:00 06/06/22 06:00 Labs: Laboratory Results - last 24 hr 06/05/22 06/05/22 06/05/22 19:20 19:20 19:20 WBC 10.5 RBC 4.28 L Hgb 13.8 Hct 39.7 L MCV 92.7 MCH 32.2 MCHC 34.7 RDW 12.6 Plt Count 272 Neut % (Auto) 74.4 Lymph % (Auto) 13.5 L [place] % (Auto) 9.7 Eos % (Auto) 1.8 L Baso % (Auto) 0.6 Neut # (Auto) 7800 H Lymph # (Auto) 1400 [place] # (Auto) 1000 H Eos # (Auto) 200 Baso # (Auto) 100 Sodium 136 L Potassium 4.1 Chloride 97 L Carbon Dioxide 29 BUN 12 Creatinine 0.67 Estimated GFR > 60 BUN/Creatinine Ratio 17.9 Glucose 99 Lactate 1.3 Calcium 9.2 Total Bilirubin 0.9 AST 26 ALT 21 Alkaline Phosphatase 77 Total Protein 8.7 H Albumin 4.5 Globulin 4.2 H Albumin/Globulin Ratio 1.1 Procalcitonin 0.07 SARS-CoV-2 (PCR) 06/05/22 06/06/22 06/06/22 21:25 06:00 06:00 WBC 7.6 RBC 4.11 L Hgb 13.0 L Hct 38.3 L MCV 93.4 MCH 31.7 MCHC 33.9 RDW 12.7 Plt Count 249 Neut % (Auto) 56.8 Lymph % (Auto) 22.3 L [place] % (Auto) 15.6 H Eos % (Auto) 5.1 H Baso % (Auto) 0.2 Neut # (Auto) 4300 Lymph # (Auto) 1700 [place] # (Auto) 1200 H Eos # (Auto) 400 Baso # (Auto) 0 Sodium 138 Potassium 4.8 Chloride 101 Carbon Dioxide 33 H BUN 16 Creatinine 0.68 Estimated GFR > 60 BUN/Creatinine Ratio 23.5 H Glucose 104 Lactate Calcium 8.7 Total Bilirubin AST ALT Alkaline Phosphatase Total Protein Albumin Globulin Albumin/Globulin Ratio Procalcitonin SARS-CoV-2 (PCR) Negative [facility] Medical History Alcohol use Tobacco abuse Surgical History History of neck surgery Social History household members: significant other and none Smoking Status: Current every day smoker alcohol intake: current substance use type: former substance user additional social history: Lives alone, unemployed Assessment & Plan Assessment & Plan narrative: 1. Acute cellulitis with recent I+D of abscess -patient left AMA after recent I and D of a MRSA abscess -cultures showing MRSA sensitive to doxy, bactrim, vanco, linezolid -was on oral doxycycline on discharge, he was not taking this medication as prescribed -for now will treat with IV vancomycin given previous MRSA culture positive -follow up final culture results -Dr. Bateman, gen surg consulted to evaluate for taking back to OR for additional surgical treatment of abscess -currently NPO 2. Chronic alcohol use -placed on ciwa protocol -not currently withdrawing -ordered mvi, thiamine, folate 3. Tobacco abuse -nicotine patch I have discussed plan and obtained history from patient and friend at bedside. I have reviewed labs, previous imaging, labs and medical notes from recent admission. I have discussed plan of care with ED physician and bedside nurse. CODE: Full Proxy: Quynh Flaquito, sister Dispo: Pending possible OR washout and improvement in cellulitis. Likely 2 days.
[2022-06-06] MEDS: VANCOMYCIN 1,250 MG/250 ML PIGGYBACK 250 MG IV ×3 (07:59→22:29)
[2022-06-06] MEDS: FOLIC ACID 1 MG TABLET PO (08:01)
[2022-06-06] MEDS: THIAMINE 100 MG TABLET PO (08:01)
[2022-06-06] MEDS: MULTIVITAMIN 1 TABLET 1 TAB PO (08:01)
[2022-06-06] MEDS: NICOTINE 14 PATCH 14 MG TOP (08:03)
[2022-06-06] MEDS: FLUTICASONE 120 SPRAY/16 GM SPRAY.SUSP NASAL (11:00)
[2022-06-06] MEDS: POLYVINYL ALCOHOL DROPS 1 DROPS EYE-BOTH (11:01)
--- NOTE | 2022-06-06 16:43 | PM.CN ---
History of Present Illness Consult details Date Patient Seen: 06/06/22 Chief complaint: Left AMA from surgery t-1 Narrative: 61-year-old man seen in consultation for a left thigh abscess. He underwent an incision and drainage procedure 2 days ago in the operating room after which he left against medical advice. He returned last night with worsening pain and was found to have residual abscess within the left thigh. Meds Home Medications and Allergies Home Medications Medication Instructions Recorded Confirmed Type doxycycline hyclate 100 mg tablet 100 mg PO BID 7 days #14 tabs 06/04/22 Rx Allergies Allergy/AdvReac Type Severity Reaction Status Date / Time No Known Drug Allergies Allergy Verified 06/05/22 18:38 Exam Vital Signs (past 8 hours): - 06/06/22 09:00 06/06/22 12:09 06/06/22 16:35 Temperature 97.1 F L 97.1 F L 97.9 F Pulse Rate 65 62 71 Respiratory Rate 18 18 21 Blood Pressure 110/62 112/65 107/77 Pulse Oximetry 96 96 98 Oxygen Delivery Method Room Air Oxygen Delivery Method Room Air Oxygen Flow Rate 0 Narrative Exam Narrative: General adult man alert oriented no acute distress Left inner thigh fluctuance with erythema tender with palpation no active drainage Objective Labs 06/06/22 06:00 06/06/22 06:00 Labs: Laboratory Results - last 24 hr 06/05/22 06/05/22 06/05/22 19:20 19:20 19:20 WBC 10.5 RBC 4.28 L Hgb 13.8 Hct 39.7 L MCV 92.7 MCH 32.2 MCHC 34.7 RDW 12.6 Plt Count 272 Neut % (Auto) 74.4 Lymph % (Auto) 13.5 L [place] % (Auto) 9.7 Eos % (Auto) 1.8 L Baso % (Auto) 0.6 Neut # (Auto) 7800 H Lymph # (Auto) 1400 [place] # (Auto) 1000 H Eos # (Auto) 200 Baso # (Auto) 100 Sodium 136 L Potassium 4.1 Chloride 97 L Carbon Dioxide 29 BUN 12 Creatinine 0.67 Estimated GFR > 60 BUN/Creatinine Ratio 17.9 Glucose 99 Lactate 1.3 Calcium 9.2 Total Bilirubin 0.9 AST 26 ALT 21 Alkaline Phosphatase 77 Total Protein 8.7 H Albumin 4.5 Globulin 4.2 H Albumin/Globulin Ratio 1.1 Procalcitonin 0.07 SARS-CoV-2 (PCR) 06/05/22 06/06/22 06/06/22 21:25 06:00 06:00 WBC 7.6 RBC 4.11 L Hgb 13.0 L Hct 38.3 L MCV 93.4 MCH 31.7 MCHC 33.9 RDW 12.7 Plt Count 249 Neut % (Auto) 56.8 Lymph % (Auto) 22.3 L [place] % (Auto) 15.6 H Eos % (Auto) 5.1 H Baso % (Auto) 0.2 Neut # (Auto) 4300 Lymph # (Auto) 1700 [place] # (Auto) 1200 H Eos # (Auto) 400 Baso # (Auto) 0 Sodium 138 Potassium 4.8 Chloride 101 Carbon Dioxide 33 H BUN 16 Creatinine 0.68 Estimated GFR > 60 BUN/Creatinine Ratio 23.5 H Glucose 104 Lactate Calcium 8.7 Total Bilirubin AST ALT Alkaline Phosphatase Total Protein Albumin Globulin Albumin/Globulin Ratio Procalcitonin SARS-CoV-2 (PCR) Negative [facility] Medical History Alcohol use Tobacco abuse Surgical History History of neck surgery Social History household members: significant other and none Tobacco & Substance Use Smoking Status: Current every day smoker alcohol intake: current substance use type: former substance user Additional Social History additional social history: Lives alone, unemployed Assessment & Plan Assessment and plan (1) Abscess of left leg: Status: Acute Assessment & Plan narrative: 61-year-old male with an abscess of the left inner thigh. Recommended incision and drainage of left inner thigh abscess. Overview of the operation was discussed with the patient. Procedural risks including hemorrhage, infection were discussed. Questions have been answered and he is in agreement with this plan..
--- NOTE | 2022-06-06 16:53 | PC.NURSE ---
Addendum entered by Blanca Strong R.N. 06/06/22 18:47: patient arrived from PACU at 1800, A&OX4, RA VSS. Dressing to L thigh intact. Eating dinner, continuous monitoring. Original Note: Pt is A&OX3, VSS, afebrile on RA. His CIWA score is 0 this shift. He has been NPO since midnight with only a sip of water with pain pills. L thigh incision with swelling, hardness and erythema. Bordered wit black marker, has not expanded. He reports pain is controlled. At 1615 he is taken by bed to pre op area for surgical I&D procedure.
--- NOTE | 2022-06-06 17:09 | SUR.OPER ---
PROCEDURE DONE IN HOSPITAL BED
--- NOTE | 2022-06-06 17:32 | PM.OP.1 ---
Operative Date/Time/Diagnoses Date of procedure: 06/06/22 Time of procedure: 17:32 Pre-op diagnosis: Left thigh abscess Post-op diagnosis: same Procedure & Clinicians Procedure: Incision and drainage of left thigh abscess Same procedure as scheduled: Yes Indications: 61-year-old male with a abscess of the left thigh who underwent incision and drainage several days ago. Patient left the hospital against medical advice and returns within 48 hours with worsening thigh pain and fluctuance. Surgeon: Andreas Bateman Anesthesia Type: General Operative Notes Findings: Purulence and hematoma within the wound Specimen(s): other (Left thigh fluid) Procedure in detail: Patient was brought to the operating room placed supine on the table. Anesthesia was induced was intubated with an LMA. He was prepped and draped in sterile fashion. Time-out was performed. He would received antibiotics. An incision was made over the left thigh over the area of maximal fluctuance. The cavity was explored there were some loculations a small amount of purulence and retained hematoma. Wound was irrigated with saline. A Christina drain was then placed through the incision and through the previous incision. The wound was then loosely reapproximated with nylon suture. Tolerated procedure well was extubated transferred to recovery in stable condition. Post-operative Condition: stable Disposition: Acute Care
[2022-06-06] MEDS: HYDROMORPHONE 2 MG INJ IV (17:42)
[2022-06-06] MEDS: OXYCODONE/ACETAMINOPHEN 5/325 TABLET 1 TAB PO (18:03)
[2022-06-06] MEDS: LORazepam 2 MG/ML INJ 0.5 MG IV (22:28)
[2022-06-07] MEDS: FLUTICASONE 120 SPRAY/16 GM SPRAY.SUSP NASAL ×2 (02:43→13:17)
[2022-06-07] MEDS: POLYVINYL ALCOHOL DROPS 1 DROPS EYE-BOTH (02:43)
[2022-06-07] MEDS: HYDROCODONE/ACET 5/325 TABLET 1 TAB PO ×5 (04:38→21:59)
[2022-06-07 05:00] VITALS: BP 112/72; PULSE 69; RESP 18; TEMP 36.3; O2SAT 97
--- NOTE | 2022-06-07 07:45 | PM.PN.1 ---
Subjective Subjective Interval history: Underwent OR washout of Left thigh hematoma/abscess and now has MADAN drain in place. Patient says the swelling and pain from the cellulitis is improving. Exam Vital Signs (past 8 hours): - 06/07/22 05:00 Temperature 97.3 F L Pulse Rate 69 Respiratory Rate 18 Blood Pressure 112/72 Pulse Oximetry 97 Oxygen Flow Rate 0 Oxygen Delivery Method Room Air Oxygen Flow Rate 0 Narrative Exam Narrative: GEN: no acute distress HEENT: moist mucous membranes, PERRL NECK: trachea midline, no JVD PULM: clear bilaterally, normal work of breathing CV: regular rate and rhythm, no murmurs ABD: soft, nontender, nondistended, no organomegaly EXT: warm and well perfused, left lower extremity with inner thigh covered in post-surgical dressing NEURO: awake, alert, oriented, with no focal deficits Objective Labs 06/06/22 06:00 06/06/22 06:00 Labs: Laboratory Results - last 24 hr 06/07/22 06:05 Vancomycin Trough 13.0 PFSH Medical History Alcohol use Tobacco abuse Surgical History History of neck surgery Social History household members: significant other and none Smoking Status: Current every day smoker alcohol intake: current substance use type: former substance user additional social history: Lives alone, unemployed Assessment & Plan Assessment & Plan narrative: 1. Acute cellulitis and abscess s/p OR washout -patient left AMA after recent I and D of a MRSA abscess by gen surg on 06/04 -cultures showing MRSA sensitive to doxy, bactrim, vanco, linezolid -was on oral doxycycline on discharge, he was not taking this medication as prescribed -for now will treat with IV vancomycin given previous MRSA culture positive -follow up final culture results -Dr. Bateman, gen surg took for OR washout on 06/06 and debrided loculated abscess and hematoma with MADAN drain placed -likely dc on po doxy 2. Chronic alcohol use -placed on ciwa protocol -not currently withdrawing -ordered mvi, thiamine, folate 3. Tobacco abuse -nicotine patch CODE: Full Proxy: Quynh Flaquito, sister Dispo: Pending cellulitis improvement MADAN drain output. Likely 1-2 days.
[2022-06-07 08:24] VITALS: BP 124/61; PULSE 65; RESP 18; TEMP 36.7; O2SAT 100
[2022-06-07] MEDS: VANCOMYCIN 1,250 MG/250 ML PIGGYBACK 250 MG IV ×3 (08:30→22:00)
[2022-06-07] MEDS: MULTIVITAMIN 1 TABLET 1 TAB PO (08:31)
[2022-06-07] MEDS: ENOXAPARIN 40 MG/0.4 ML SYRINGE SUBCUT (08:31)
[2022-06-07] MEDS: THIAMINE 100 MG TABLET PO (08:31)
[2022-06-07] MEDS: FOLIC ACID 1 MG TABLET PO (08:31)
[2022-06-07] MEDS: NICOTINE 14 PATCH 14 MG TOP (08:32)
--- NOTE | 2022-06-07 11:59 | CM.DPC ---
DCP Cont: Per MD, pt was taken down to OR yesterday for I&D with Surgeon and had drain placed and likely pt to remain another day for drain and IV-Abx with possible discharge tomorrow if medically stable. Plan: SW to follow for possible discharge tomorrow if medically stable and pt was given housing resources, has local sister and local Sig Other, and aware of calling [facility] [employer] [facility] and leaving a message. Pt also has Medicaid transportation benefits if needed at d/c or bus pass. MARA Hutson
[2022-06-07] MEDS: polyethylene glycoL 3350 17 GM POWD.PACK PO (13:10)
[2022-06-07] MEDS: SENNOSIDES 8.6 MG TABLET PO (13:10)
[2022-06-07] MEDS: LACTATED RINGERS 1,000 ML 100 ML IV ×2 (15:14→22:00)
[2022-06-07 16:00] VITALS: BP 132/79; PULSE 63; RESP 18; TEMP 36.6; O2SAT 100
[2022-06-07 21:00] VITALS: BP 128/74; PULSE 65; RESP 18; TEMP 36.3; O2SAT 97
[2022-06-08] MEDS: HYDROCODONE/ACET 5/325 TABLET 1 TAB PO ×3 (01:58→12:08)
[2022-06-08 03:10] VITALS: BP 124/78; PULSE 69; RESP 19; TEMP 36.3; O2SAT 96
--- NOTE | 2022-06-08 05:22 | PC.NURSE ---
Patient with multiple requests, calling many times for single requests. Needing 2 linen changes after spilling urinal, but patient able to stand at bedside and walk to bathroom. Patient becoming angry when asking for ativan and explained that it was for alcohol withdrawal only. Patient then began having jerking movements in an attempt to obtain ativan. Medicated without night, requesting only [address] STENOGR[employer] enter room.
[2022-06-08 06:44] LABS: Add Manual Diff / Slide Review NO; Basophils Absolute Auto 100 /uL (0-100); Basophils Percent Auto 1.5 % (0-2); Eosinophils Absolute Auto 300 /uL (0-450); Eosinophils Percent Auto 4.5 % (2-4); Hematocrit 37.3 % (41-53); Hemoglobin 12.8 g/dL (13.5-17.5); Lymphocytes Absolute Auto 2600 /uL (1100-4500); Lymphocytes Percent Auto 41.1 % (25-40); Mean Corpuscular HGB Conc 34.2 % (30-36); Mean Corpuscular Hemoglobin 31.9 PG (26-34); Mean Corpuscular Volume 93.3 fL (80-100); Monocytes Absolute Auto 600 /uL (0-900); Neutrophils Absolute Auto 2700 /uL (1500-7000); Neutrophils Percent Auto 42.9 % (50-75); Platelet Count 310 X10^3/uL (150-400); Red Cell Distribution Width 12.6 % (11.6-14.8); White Blood Cell Count 6.3 X10^3/uL (4.5-11.0)
[2022-06-08 06:53] LABS: BUN Creatinine Ratio 22.6 (6-22); Blood Urea Nitrogen 14 mg/dL (9-20); Calcium 8.7 mg/dL (8.4-10.2); Carbon Dioxide 26 mmol/L (22-32); Chloride 105 mmol/L (98-107); Estimated Glomerular Filt Rate > 60 mL/min (>60); Glucose 90 mg/dL (80-110); HEMOLYSIS < 15 (0-50); Potassium 4.3 mmol/L (3.4-5.1); Sodium 138 mmol/L (137-145)
[2022-06-08] MEDS: VANCOMYCIN 1,250 MG/250 ML PIGGYBACK 250 MG IV (07:44)
[2022-06-08 08:00] VITALS: BP 137/85; PULSE 64; RESP 18; TEMP 36.2; O2SAT 97
[2022-06-08] MEDS: NICOTINE 14 PATCH 14 MG TOP (08:11)
[2022-06-08] MEDS: FOLIC ACID 1 MG TABLET PO (08:13)
[2022-06-08] MEDS: MULTIVITAMIN 1 TABLET 1 TAB PO (08:13)
[2022-06-08] MEDS: ENOXAPARIN 40 MG/0.4 ML SYRINGE SUBCUT (08:13)
[2022-06-08] MEDS: THIAMINE 100 MG TABLET PO (08:13)
--- NOTE | 2022-06-08 10:38 | PM.DS.1 ---
History of Present Illness History of Present Illness Date Patient Seen: 06/05/22 Time Patient Seen: 20:30 Chief complaint: Left AMA from surgery t-1 Narrative: Mr. Boateng is a 61M with H etoh abuse, tobacco abuse who presents to the hospital with left upper leg pain, swelling and erythema. He was admitted on 06/02 and was found to have an abscess in his left inner/upper thigh. He was started on antibiotics and had I and D done on 06/04. Sutures were done, and MADAN drain was in place. Afterwards per records patient was found to be smoking in the hospital. He was asked to remove this paraphernalia and he then decided to leave against medical advice. He was given a prescription for doxycycline. He has only taken one pill. He has not had alcohol since being discharged. He comes back to the hospital today because of worsening erythema of his leg and subjective chills. His pain in his leg is worsening. He has no documented fevers. In the ED workup was done, vitals notable for afebrile, heart rate 60s-70s, blood pressure 120s/80s, o2 sat 100% on room air. Labs reviewed by me and notable for WBC 8.1, hgb 12.5, plts 193. Na 136, creatinine 0.62. Surgery was consulted and recommended antibiotics and will evaluate him in the morning for possible return to the OR, but said additional imaging not necessary at this time. He was ordered for antibiotics and admitted for further treatment. Discharge Providers Provider Date of admission: 06/05/22 20:45 Discharge Date: 06/08/22 Primary care physician: Akosua Hernandez PA-C Consults: 06/05/22 22:20 Consult to General Surgery Routine Comment: Consulting Provider: Davy Loving Reason for consultation: abscess s/p I+D Has provider been notified: Yes 06/05/22 22:51 Consult to [facility] [place] - Ob Gyn Physician Assistant Routine Comment: Discharge provider: Jose Davison DO Summary Hospital Course Discharge Diagnosis: 1. Acute cellulitis and abscess s/p OR washout -patient left AMA after recent I and D of a MRSA abscess by gen surg on 06/04 -cultures showing MRSA sensitive to doxy, bactrim, vanco, linezolid -was on oral doxycycline on discharge, he was not taking this medication as prescribed -for now will treat with IV vancomycin given previous MRSA culture positive -final repeat abscess culture results with no growth -Dr. Bateman, gen surg took for OR washout on 06/06 and debrided loculated abscess and hematoma with MADAN drain placed -dc on 10 days of po linezolid -f/u with gen surg in clinic next week for drain removal 2. Chronic alcohol use -placed on ciwa protocol -not currently withdrawing -ordered mvi, thiamine, folate 3. Tobacco abuse -nicotine patch 4. Bilateral cerumen impaction -performed earwax removal procedure on both ears removing large amounts of impacted earwax Hospital Course: Patient admitted for left thigh abscess and cellulitis and started on MRSA given prior culture results of MRSA. Taken to OR by gen surg for washout and MADAN drain placed which will be removed as outpatient by gen surg in 1 week. Discharged on 10 days of po linezolid. Time Spent with Patient Time spent: Greater than 30 minutes Exam Vital Signs (past 8 hours): - 06/08/22 03:10 06/08/22 08:00 Temperature 97.4 F L 97.2 F L Pulse Rate 69 64 Respiratory Rate 19 18 Blood Pressure 124/78 137/85 Pulse Oximetry 96 97 Oxygen Flow Rate 0 0 Oxygen Delivery Method Room Air Oxygen Flow Rate 0 Narrative Exam Narrative: GEN: no acute distress HEENT: moist mucous membranes, PERRL NECK: trachea midline, no JVD PULM: clear bilaterally, normal work of breathing CV: regular rate and rhythm, no murmurs ABD: soft, nontender, nondistended, no organomegaly EXT: warm and well perfused, left lower extremity with inner thigh covered in post-surgical dressing NEURO: awake, alert, oriented, with no focal deficits Objective Labs 06/08/22 06:20 06/08/22 06:20 Labs: Laboratory Results - last 24 hr 06/08/22 06/08/22 06:20 06:20 WBC 6.3 RBC 4.00 L Hgb 12.8 L Hct 37.3 L MCV 93.3 MCH 31.9 MCHC 34.2 RDW 12.6 Plt Count 310 Neut % (Auto) 42.9 L Lymph % (Auto) 41.1 H [place] % (Auto) 10.0 Eos % (Auto) 4.5 H Baso % (Auto) 1.5 Neut # (Auto) 2700 Lymph # (Auto) 2600 [place] # (Auto) 600 Eos # (Auto) 300 Baso # (Auto) 100 Sodium 138 Potassium 4.3 Chloride 105 Carbon Dioxide 26 BUN 14 Creatinine 0.62 L Estimated GFR > 60 BUN/Creatinine Ratio 22.6 H Glucose 90 Calcium 8.7 PFSH Medical History Alcohol use Tobacco abuse Surgical History History of neck surgery Social History household members: significant other and none Smoking Status: Current every day smoker alcohol intake: current substance use type: former substance user additional social history: Lives alone, unemployed Discharge Plan Discharge Plan Patient Disposition: Home Provider Discharge Comment: You were admitted for a leg abscess which was drained by general surgery. You received IV antibiotics while in the hospital and your infection improved. You will now need to finish a course of oral antibiotics at home for 10 days. I've also sent some pain meds for you. Discharge orders & Medications Prescriptions: New hydrocodone-acetaminophen 5-325 mg Tablet 1 tab PO Q6HR PRN (Reason: Pain, Moderate (4-6)) Qty: 20 0RF linezolid 600 mg tablet 600 mg PO BID 10 Days Qty: 20 0RF Discontinued doxycycline hyclate 100 mg tablet 100 mg PO BID 7 Days Qty: 14 0RF Follow up/Referrals: Akosua Hernandez PA-C [Primary Care Provider] - 2 Weeks Andreas Bateman MD [Physician] - 1 Week Visit Report/Discharge Packet Stand Alone Forms: Patient Portal/API, Stroke Signs & Symptoms Discharge Data Primary Care Provider: Akosua Hernandez I
--- NOTE | 2022-06-08 11:25 | CM.DPC ---
DCP Continued: CM met with patient at the bedside to check in on DC plan. Patient aware plan is for him to DC today. Patient has Homeless resources, [facility] information for Motel voucher program but stated he will more then likely go to his sisters or a friends house today at DC and doesn't need any resources. Mary Curtis RNmanager transportation
--- NOTE | 2022-06-08 15:35 | PC.NURSE ---
Pt is A&Ox4 on RA.VSS, afebrile on RA. Wound to L thigh with minimal bleeding, redness and swelling around wound incision improving, stitches intact with roxanna drain tube covered in guaze and ABD pad ,medipore tape. He denies n/v, and reports pain controlled with hydrocodone PRN. He is independent and ambulatory in his room. MD at bedside evaluating ears per patient request for earwax impaction. MD cleared a large amount of earwax from ears and recommended patient follow up with PCP out patient. Per MD he is medically cleared for discharge. Patient verbalizes understanding of discharge instructions, medications,site care, and making follow up appointment with MD Bateman in x1 week for drain removal. He is given some dressing change supplies and escorted with all of his belongings to ER entrance to meet magdalena Conner to parts picker prescriptions at approximately 1530.
== END 2022-06-08 15:35 | disposition home or self-care (01) | DRG 603 ==
LOC: ED 20:17 → AC 06-06 07:20
PROVIDERS: Student in an Organized Health Care Education/Training Program; Surgery; Admitting Provider Internal Medicine; Emergency Provider Emergency Medicine; PCP Physician Assistant; Referring Provider Emergency Medicine; Visit Provider Internal Medicine
PROC: (CPT 10060; principal; 2022-06-06 17:00)
DX: L03.116 Cellulitis of left lower limb (principal); L02.416 Cutaneous abscess of left lower limb; B95.62 Methicillin resistant Staphylococcus aureus infection as the cause of diseases classified elsewhere; H61.23 Impacted cerumen, bilateral; F10.90 Alcohol use, unspecified, uncomplicated; F17.200 Nicotine dependence, unspecified, uncomplicated; Z20.822 Contact with and (suspected) exposure to COVID-19
CPT/HCPCS: 10060; 36415; 80048; 80053; 80202; 83605; 84145; 85025; 87040; 87070; 87075; 87205; 87635; 96365; 96366; 96367; 96375; 99232; 99283; 99284; C9803; G0378; J0696; J1100; J1170; J1650; J2060; J2250; J2405; J2704; J3010

== ENCOUNTER 2022-06-11 20:40 | Emergency (ER) | payer MEDICARE, MEDICAID, SELFPAY ==
[2022-06-05 22:31] VITALS: BMI 27.1
[2022-06-11 20:49] VITALS: BP 115/74; PULSE 98; RESP 16; TEMP 36.9; O2SAT 98
--- NOTE | 2022-06-11 23:01 | PC.NURSE ---
Patient used the red phone to call the department and wants to talk to pastor piper in regards to ER wait times. Pt states it is ridiculous that people are waiting for 3.5hours. Patient was given a cup of water per his request and informed that the department is full, and we are working on getting others back.
--- NOTE | 2022-06-12 02:41 | ED.SKABFB ---
HPI - Skin/Abscess/Foreign Bdy General Chief complaint: Skin/Abscess/Foreign Body Stated complaint: MRSA, something going on with lt foot Time Seen by Provider: 06/12/22 02:30 Source: patient Mode of arrival: Ambulatory Limitations: no limitations History of Present Illness HPI narrative: Patient 61-year-old male history of chronic alcohol abuse, recent left thigh abscess initially admitted June 02 readmitted June 05 discharged June 08, taken to the OR June 04 and June 06 for I& D. He was discharged home on the with linezolid. He presents today because he thinks he may have stepped on something with his left foot. He is not sure what it is. He has circled an area that is sore and tender. He missed his nightly dose of antibiotics. He still has a MADAN drain in place in his left thigh. He had fever or chills. Denies other symptoms Related Data Previous Rx's Medication Instructions Recorded hydrocodone 5 mg-acetaminophen 325 1 tab PO Q6HR PRN Pain, Moderate 06/08/22 mg tablet (4-6) #20 tabs linezolid 600 mg tablet 600 mg PO BID 10 days #20 tabs 06/08/22 Allergies Allergy/AdvReac Type Severity Reaction Status Date / Time Androgenic Anabolic Steroid AdvReac Hallucinati Verified 06/11/22 20:49 ng Review of Systems Review of Systems ROS Unobtainable: All systems reviewed & are unremarkable except as noted in HPI and below Patient History Medical History Alcohol use Tobacco abuse Surgical History History of neck surgery Social History household members: significant other and none Smoking Status: Current every day smoker alcohol intake: current substance use type: former substance user additional social history: Lives alone, unemployed Smoking Status: Current every day smoker tobacco type: cigarettes alcohol intake frequency: 0-2 drinks per day Alcohol type: beer Substance Use Type: does not use Exam Initial Vital Signs Initial Vital Signs: Vital Signs Temperature 98.5 F 06/11/22 20:49 Pulse Rate 98 H 06/11/22 20:49 Respiratory Rate 16 06/11/22 20:49 Blood Pressure 115/74 06/11/22 20:49 Pulse Oximetry 98 06/11/22 20:49 Oxygen Delivery Method Room Air 06/11/22 20:49 GENERAL: Alert disheveled 61-year-old CARDIOVASCULAR: peripheral pulses in tact, cap refill <2 sec RESPIRATORY: No respiratory distress, speaks in full sentences without difficulty EXTREMITIES: Normal range of motion, no clubbing or edema. Neurovascularly intact NEUROLOGICAL: Cranial nerves II through XII grossly intact. Normal gait and speech. SKIN: Left thigh abscess is dressed I looked at wound there is a drain area is soft no significant erythema or drainage actually looks to be doing pretty good. Bottom of left foot there is blood dried skin and callus no obvious foreign body. No erythema. Course Orders Ordered: ED Orders 06/11/22 20:58 Consult to TRANSIT MIXER OPERATOR - Inbound Ingredient Logistics Specialist Stat Vital Signs Vital signs: Vital Signs - 8 hr 06/11/22 20:49 Temperature 98.5 F Pulse Rate 98 H Respiratory Rate 16 Blood Pressure 115/74 Pulse Oximetry 98 Oxygen Delivery Method Room Air MDM - Skin/Abscess/Foreign Bdy MDM Narrative Medical decision making narrative: Patient is 61-year-old male with recent multiple admissions I and D also left Against Medical Advice. Presents today with possible foreign body in the bottom of his left foot. There is no obvious erythema or foreign body or entrance wound. Patient demanding MRI and CT. I have explained this is not necessarily indicated. He overall is getting extremely frustrated and verbally abusive. Slamming doors in the emergency department. Patient has no sign of sepsis abscess in his left thigh is healing. No further workup is indicated. Patient left prior to his discharge instructions Discharge Plan Departure Patient Disposition: Home Clinical Impression: Foreign body in foot Instructions: DI for Skin Abscess Activity Restrictions/Additional Instructions: *You have been diagnosed with possible foot form *What to do: Soak foot in warm water *Continue to take medications as directed Keep taking antibiotics *Follow up with your primary care provider in 2-3 days or call [phone] *Return to ER if you should have any new, worsening or concerning symptoms Prescriptions: No Action hydrocodone-acetaminophen 5-325 mg Tablet 1 tab PO Q6HR PRN (Reason: Pain, Moderate (4-6)) Qty: 20 0RF linezolid 600 mg tablet 600 mg PO BID 10 Days Qty: 20 0RF Referrals: Akosua Hernandez PA-C [Primary Care Provider] - Stand Alone Forms: Patient Portal/API
[2022-06-12 02:57] VITALS: BP 127/58; PULSE 82; RESP 16; O2SAT 96
--- NOTE | 2022-06-12 02:57 | PC.NURSE ---
Doctor into see patient. Pt's voice began to raise and he started yelling at the doctor, While patient was in waiting room, had called back into department multiple times to ask when he was coming back. pt demanding to come back sooner. states he was going to put in a complaint about the time he had to wait to get back to the room. Once the doctor left his room, he slammed the door shut, when told not to slam our doors, he stated it's not your door, it's my door until I leave. Called security to stand by as patient left department was still yelling at staff.
--- NOTE | 2022-06-12 02:57 | PC.NURSE ---
0000 This INTELLIGENCE CHIEF hears PT swearing and shouting in Room by himself. This INTELLIGENCE CHIEF goes in to check on Pt. Pt is angry and shouting about how long he has been waiting. Pt informed that he will be seen by provider when available there are other Pts ahead of him. Pt continues to vent about having to wait and that it is bullshit. After Pt calms down Pt offered Water and a warm blanket while he waits. Pt demeanor is more cordial after letting out his feelings.
== END 2022-06-12 03:07 | disposition home or self-care (01) ==
PROVIDERS: Emergency Provider Emergency Medicine; PCP Physician Assistant
DX: S91.342A Puncture wound with foreign body, left foot, initial encounter (principal)
CPT/HCPCS: 99281

== ENCOUNTER 2022-06-19 16:20 | Emergency (ER) | payer MEDICARE, MEDICAID, SELFPAY ==
[2022-06-05 22:31] VITALS: BMI 27.1
[2022-06-19 16:29] VITALS: BP 119/78; PULSE 87; RESP 18; TEMP 36.9; O2SAT 100; BMI 26.4
--- NOTE | 2022-06-19 18:21 | ED_ITS ---
HPI - Recheck/Abnormal Lab/Rx General Chief Complaint: Recheck/Abnormal Lab/Rx Stated Complaint: states sent by Dr Bateman Time Seen by Provider: 06/19/22 16:56 Source: patient Mode of arrival: Ambulatory History of Present Illness HPI narrative: Patient is a 61-year-old male who was hospitalized June 05 through June 08 for left leg abscess. He had multiple I and D's. He continues to have a Christina drain in his left thigh. He had a follow-up appointment with surgery today. Concern for recurring abscess. He is currently afebrile. He is very argumentative, and not forthcoming with information. Most of the information is received from the chart. Related Data Previous Rx's Medication Instructions Recorded hydrocodone 5 mg-acetaminophen 325 1 tab PO Q6HR PRN Pain, Moderate 06/08/22 mg tablet (4-6) #20 tabs Allergies Allergy/AdvReac Type Severity Reaction Status Date / Time Androgenic Anabolic Steroid AdvReac Hallucinati Verified 06/19/22 16:36 ng Review of Systems Review of Systems ROS Unobtainable: All systems reviewed & are unremarkable except as noted in HPI and below Patient History Medical History Alcohol use Tobacco abuse Surgical History History of neck surgery Social History household members: significant other and none Smoking Status: Current every day smoker alcohol intake: current substance use type: former substance user additional social history: Lives alone, unemployed Smoking Status: Current every day smoker tobacco type: cigarettes alcohol intake frequency: 0-2 drinks per day Alcohol type: beer Substance Use Type: does not use Exam Initial Vital Signs Initial Vital Signs: Vital Signs Temperature 98.5 F 06/19/22 16:29 Pulse Rate 87 06/19/22 16:29 Respiratory Rate 18 06/19/22 16:29 Blood Pressure 119/78 06/19/22 16:29 Pulse Oximetry 100 06/19/22 16:29 Oxygen Delivery Method Room Air 06/19/22 16:29 GENERAL: Cantankerous 61-year-old male CARDIOVASCULAR: peripheral pulses in tact, cap refill <2 sec RESPIRATORY: No respiratory distress, speaks in full sentences without difficulty EXTREMITIES: Normal range of motion, no clubbing or edema. Neurovascularly intact NEUROLOGICAL: Cranial nerves II through XII grossly intact. Normal gait and speech. SKIN: Left thigh swelling Christina drain minimal erythema no obvious drainage Course Orders Ordered: ED Orders 06/19/22 18:33 CT LE LT w con Stat Blood Culture Stat 06/19/22 18:45 CBC Auto Diff [Complete Blood Count AUTO DIFF] Stat CMP [Comprehensive Metabolic Panel] Stat Lactate (Lactic Acid) Stat Vital Signs Vital signs: Vital Signs - 8 hr 06/19/22 16:29 Temperature 98.5 F Pulse Rate 87 Respiratory Rate 18 Blood Pressure 119/78 Pulse Oximetry 100 Oxygen Delivery Method Room Air MDM - Recheck/Abnormal Lab/Rx Lab Data 06/19/22 18:45 06/19/22 18:45 Labs: Lab Results 06/19/22 06/19/22 06/19/22 Range/Units 18:45 18:45 18:45 WBC 8.2 (4.5-11.0) X10^3/uL RBC 4.26 L (4.5-5.9) X10^6/uL Hgb 13.7 (13.5-17.5) g/dL Hct 39.8 L (41-53) % MCV 93.4 (80-100) fL MCH 32.1 (26-34) PG MCHC 34.4 (30-36) % RDW 13.1 (11.6-14.8) % Plt Count 267 (150-400) X10^3/uL Neut % (Auto) 60.8 (50-75) % Lymph % (Auto) 25.2 (25-40) % [place] % (Auto) 7.0 (3-14) % Eos % (Auto) 4.6 H (2-4) % Baso % (Auto) 2.4 H (0-2) % Neut # (Auto) 5000 (2651-4737) /uL Lymph # (Auto) 2100 (3398-7548) /uL [place] # (Auto) 600 (0-900) /uL Eos # (Auto) 400 (0-450) /uL Baso # (Auto) 200 H (0-100) /uL Sodium 136 L (137-145) mmol/L Potassium 4.1 (3.4-5.1) mmol/L Chloride 100 (98-107) mmol/L Carbon Dioxide 27 (22-32) mmol/L BUN 15 (9-20) mg/dL Creatinine 0.62 L (0.66-1.25) mg/dL Estimated GFR > 60 (>60) mL/min BUN/Creatinine Ratio 24.2 H (6-22) Glucose 95 (80-110) mg/dL Lactate 0.9 (0.7-2.1) mmol/L Calcium 9.0 (8.4-10.2) mg/dL Total Bilirubin 0.8 (0.2-1.3) mg/dL AST 36 (17-59) IU/L ALT 24 (<50) IU/L Alkaline Phosphatase 75 (38-126) U/L Total Protein 7.8 (6.3-8.2) g/dL Albumin 4.5 (3.5-5.0) g/dL Globulin 3.3 (1.7-4.1) g/dL Albumin/Globulin Ratio 1.4 (1.0-2.8) Imaging Data CT LE: Radiologist's Impression: PROCEDURE:? CT LE LT W CON ? INDICATIONS:? thigh abcess ? TECHNIQUE:? After the administration of intravenous contrast, 3 mm axial sections acquired of the left upper leg , with coronal and sagittal reformats. ? ? COMPARISON:? [facility], EXTREMITY NONVASC LOWER LT, 06/03/2022, 8:24. ? FINDINGS:? ? A soft tissue drain is present within the superficial soft tissues of the upper medial left thigh.? A tiny amount of fluid is present adjacent to the drain, likely within a collapsed abscess.? No substantial residual undrained fluid present. ? The drain and collection/fluid are present within the superficial fat.? There is adjacent fat stranding and possible mild fascial thickening.? No definite involvement of the underlying musculature.? No definite or substantial soft tissue gas identified.? Degenerative changes of the left knee are present.? Possible left knee loose bodies. ? IMPRESSION:? A soft tissue drain is present within the superficial soft tissues of the upper medial left thigh.? A tiny amount of fluid is present adjacent to the drain, likely within a collapsed abscess.? No substantial residual undrained fluid/measurable collection present. ? ? ? Dictated by: Vinay Guillermo M.D. on 06/19/2022 at 19:38 ? ? MDM Narrative Medical decision making narrative: Patient left without any conversation with nursing staff or myself. CT was done. The patient left prior to CT results. It took approximately [address] shows a drain but no obvious abscess. There is a tiny amount of fluid adjacent to the drain likely within a collapsed abscess. But no substantial residual undrained fluid miserable collection present. He has no leukocytosis. No evidence of sepsis. Patient can follow-up with surgery. I did call and touch base with Dr. Loving on-call for surgery who let Dr. Bateman know. No need for antibiotics at this time. Discharge Plan Departure Patient Disposition: Left Against Medical Advice Clinical Impression: Patient left before treatment completed Prescriptions: No Action hydrocodone-acetaminophen 5-325 mg Tablet 1 tab PO Q6HR PRN (Reason: Pain, Moderate (4-6)) Qty: 20 0RF Stand Alone Forms: Against Medical Advice
--- NOTE | 2022-06-19 18:33 | DI.CT.S_ITS ---
PROCEDURE: CT LE LT W CON INDICATIONS: thigh abcess TECHNIQUE: After the administration of intravenous contrast, 3 mm axial sections acquired of the left upper leg , with coronal and sagittal reformats. COMPARISON: [facility], , EXTREMITY NONVASC LOWER LT, 06/03/2022, 8:24. FINDINGS: A soft tissue drain is present within the superficial soft tissues of the upper medial left thigh. A tiny amount of fluid is present adjacent to the drain, likely within a collapsed abscess. No substantial residual undrained fluid present. The drain and collection/fluid are present within the superficial fat. There is adjacent fat stranding and possible mild fascial thickening. No definite involvement of the underlying musculature. No definite or substantial soft tissue gas identified. Degenerative changes of the left knee are present. Possible left knee loose bodies. IMPRESSION: A soft tissue drain is present within the superficial soft tissues of the upper medial left thigh. A tiny amount of fluid is present adjacent to the drain, likely within a collapsed abscess. No substantial residual undrained fluid/measurable collection present. Dictated by: Vinay Guillermo M.D. on 06/19/2022 at 19:38 Approved by: Vinay Guillermo M.D. on 06/19/2022 at 19:45
[2022-06-19 19:04] LABS: Add Manual Diff / Slide Review NO; Basophils Absolute Auto 200 /uL (0-100); Basophils Percent Auto 2.4 % (0-2); Eosinophils Absolute Auto 400 /uL (0-450); Eosinophils Percent Auto 4.6 % (2-4); Hematocrit 39.8 % (41-53); Hemoglobin 13.7 g/dL (13.5-17.5); Lymphocytes Absolute Auto 2100 /uL (1100-4500); Lymphocytes Percent Auto 25.2 % (25-40); Mean Corpuscular HGB Conc 34.4 % (30-36); Mean Corpuscular Hemoglobin 32.1 PG (26-34); Mean Corpuscular Volume 93.4 fL (80-100); Monocytes Absolute Auto 600 /uL (0-900); Neutrophils Absolute Auto 5000 /uL (1500-7000); Neutrophils Percent Auto 60.8 % (50-75); Platelet Count 267 X10^3/uL (150-400); Red Blood Cell Count 4.26 X10^6/uL (4.5-5.9); Red Cell Distribution Width 13.1 % (11.6-14.8); White Blood Cell Count 8.2 X10^3/uL (4.5-11.0)
[2022-06-19 19:29] LABS: Alanine Aminotransferase 24 IU/L (<50); Albumin 4.5 g/dL (3.5-5.0); Albumin Globulin Ratio 1.4 (1.0-2.8); Alkaline Phosphatase 75 U/L (38-126); Aspartate Aminotransferase 36 IU/L (17-59); BUN Creatinine Ratio 24.2 (6-22); Bilirubin Total 0.8 mg/dL (0.2-1.3); Blood Urea Nitrogen 15 mg/dL (9-20); Carbon Dioxide 27 mmol/L (22-32); Chloride 100 mmol/L (98-107); Estimated Glomerular Filt Rate > 60 mL/min (>60); Globulin 3.3 g/dL (1.7-4.1); Glucose 95 mg/dL (80-110); HEMOLYSIS < 15 (0-50); Lactate (Lactic Acid) 0.9 mmol/L (0.7-2.1); Potassium 4.1 mmol/L (3.4-5.1); Sodium 136 mmol/L (137-145); Total Protein 7.8 g/dL (6.3-8.2)
== END 2022-06-19 19:34 | disposition left against medical advice (07) ==
PROVIDERS: Emergency Provider Emergency Medicine; PCP Physician Assistant
DX: L02.416 Cutaneous abscess of left lower limb (principal); L03.116 Cellulitis of left lower limb
CPT/HCPCS: 36415; 73701; 80053; 83605; 85025; 87040; 99212; 99283; 99284

== ENCOUNTER 2022-07-06 23:15 | Emergency (ER) | payer MEDICARE, MEDICAID, SELFPAY ==
[2022-06-05 22:31] VITALS: BMI 27.1
[2022-07-06 23:22] VITALS: BP 130/74; PULSE 86; RESP 14; TEMP 36.4; O2SAT 97; BMI 27.1
--- NOTE | 2022-07-07 00:29 | ED.RECABL ---
HPI - Recheck/Abnormal Lab/Rx General Chief Complaint: Recheck/Abnormal Lab/Rx Stated Complaint: drain taking out of left leg Time Seen by Provider: 07/07/22 00:29 Source: patient Mode of arrival: Ambulatory History of Present Illness HPI narrative: Patient is 61-year-old male presents today with wanting his drain removed from his left thigh. He had a drain placed for an abscess looks like June 04. He followed up with surgery on June 19 there was concern for possible recurring abscess he was sent to the ED where he had a CT scan done CT was negative for abscess but did have a small fluid collection. He left Against Medical Advice prior to the CT results. I saw him during that visit I called and notified surgery of the results. Patient has not followed up with surgery since then. He is here today to have his drain removed. He is no fever or chills. There is no other issue with it. Related Data Previous Rx's Medication Instructions Recorded hydrocodone 5 mg-acetaminophen 325 1 tab PO Q6HR PRN Pain, Moderate 06/08/22 mg tablet (4-6) #20 tabs Allergies Allergy/AdvReac Type Severity Reaction Status Date / Time Androgenic Anabolic Steroid AdvReac Hallucinati Verified 06/19/22 16:36 ng Review of Systems Review of Systems ROS Unobtainable: All systems reviewed & are unremarkable except as noted in HPI and below Patient History Medical History Alcohol use Tobacco abuse Surgical History History of neck surgery Social History household members: significant other and none Smoking Status: Current every day smoker alcohol intake: current substance use type: former substance user additional social history: Lives alone, unemployed Smoking Status: Current every day smoker tobacco type: cigarettes alcohol intake frequency: 0-2 drinks per day Alcohol type: beer Substance Use Type: does not use Exam Initial Vital Signs Initial Vital Signs: Vital Signs Temperature 97.6 F 07/06/22 23:22 Pulse Rate 86 07/06/22 23:22 Respiratory Rate 14 07/06/22 23:22 Blood Pressure 130/74 07/06/22 23:22 Pulse Oximetry 97 07/06/22 23:22 Oxygen Delivery Method Room Air 07/06/22 23:22 GENERAL: Patient awake alert cooperative today CARDIOVASCULAR: peripheral pulses in tact, cap refill <2 sec RESPIRATORY: No respiratory distress, speaks in full sentences without difficulty EXTREMITIES: Normal range of motion, no clubbing or edema. Neurovascularly intact NEUROLOGICAL: Cranial nerves II through XII grossly intact. Normal gait and speech. SKIN: Left thigh drain in place with dressing sutured in no surrounding erythema no swelling no induration Course Vital Signs Vital signs: Vital Signs - 8 hr 07/06/22 23:22 Temperature 97.6 F Pulse Rate 86 Respiratory Rate 14 Blood Pressure 130/74 Pulse Oximetry 97 Oxygen Delivery Method Room Air MDM - Recheck/Abnormal Lab/Rx MDM Narrative Medical decision making narrative: Patient has no evidence of infection today it is nontender. There does not seem to be anything acute. I encourage him to follow up with surgery for them to remove the drain. Discharge Plan Departure Patient Disposition: Home Clinical Impression: Encounter for wound re-check Activity Restrictions/Additional Instructions: In order to get your drain removed you must call surgery and follow-up. Call them 1st thing tomorrow they will help you Your CT scan from June 19 did not show any new abscess *Continue to take medications as directed *Follow up with call Dr. Bateman 1st thing tomorrow morning *Return to ER if you should have any new, worsening or concerning symptoms Prescriptions: No Action hydrocodone-acetaminophen 5-325 mg Tablet 1 tab PO Q6HR PRN (Reason: Pain, Moderate (4-6)) Qty: 20 0RF Referrals: Akosua Hernandez PA-C [Primary Care Provider] - Andreas Bateman MD [Physician] - Stand Alone Forms: Patient Portal/API
== END 2022-07-07 00:43 | disposition home or self-care (01) ==
PROVIDERS: Emergency Provider Emergency Medicine; PCP Physician Assistant
DX: Z48.03 Encounter for change or removal of drains (principal)
CPT/HCPCS: 99281

== ENCOUNTER 2022-09-14 12:08 | Emergency (ER) | payer MEDICARE, MEDICAID, SELFPAY ==
[2022-06-05 22:31] VITALS: BMI 27.1
[2022-09-14 12:10] VITALS: BP 193/98; TEMP 36.4; BMI 26.4
[2022-09-14 14:30] LABS: UR Morphine/Opiate cutoff 300 Negative (Negative); Ur Creatinine Normal (Normal); Ur Specific Gravity Normal (Normal); Urine Amphetamines Negative (Negative); Urine Barbiturates Negative (Negative); Urine Benzodiazepines Negative (Negative); Urine Cocaine Negative (Negative); Urine MDMA Negative (Negative); Urine Methadone Negative (Negative); Urine Methamphetamines Negative (Negative); Urine Oxycodone Negative (Negative); Urine Phencyclidine Negative (Negative); Urine Tetrahydrocannabinol Negative (Negative); Urine Tricyclic Antidepressant Negative (Negative); Urine pH Normal (Normal)
[2022-09-14] MEDS: NICOTINE 21 MG PATCH TOP (14:58)
[2022-09-14 15:15] LABS: Add Manual Diff / Slide Review NO; Basophils Absolute Auto 0 /uL (0-100); Basophils Percent Auto 0.5 % (0-2); Eosinophils Absolute Auto 200 /uL (0-450); Eosinophils Percent Auto 2.4 % (2-4); Hematocrit 43.7 % (41-53); Hemoglobin 14.8 g/dL (13.5-17.5); Lymphocytes Absolute Auto 1400 /uL (1100-4500); Lymphocytes Percent Auto 16.9 % (25-40); Mean Corpuscular HGB Conc 33.9 % (30-36); Mean Corpuscular Hemoglobin 32.1 PG (26-34); Mean Corpuscular Volume 94.8 fL (80-100); Monocytes Absolute Auto 600 /uL (0-900); Neutrophils Absolute Auto 6100 /uL (1500-7000); Neutrophils Percent Auto 73.2 % (50-75); Platelet Count 194 X10^3/uL (150-400); Red Blood Cell Count 4.61 X10^6/uL (4.5-5.9); Red Cell Distribution Width 13.6 % (11.6-14.8); White Blood Cell Count 8.4 X10^3/uL (4.5-11.0)
[2022-09-14 15:24] LABS: Alanine Aminotransferase 22 IU/L (<50); Albumin 4.5 g/dL (3.5-5.0); Albumin Globulin Ratio 1.3 (1.0-2.8); Alkaline Phosphatase 62 U/L (38-126); Aspartate Aminotransferase 26 IU/L (17-59); BUN Creatinine Ratio 21.9 (6-22); Bilirubin Total 1.2 mg/dL (0.2-1.3); Blood Urea Nitrogen 16 mg/dL (9-20); Calcium 9.1 mg/dL (8.4-10.2); Carbon Dioxide 33 mmol/L (22-32); Chloride 99 mmol/L (98-107); Estimated Glomerular Filt Rate > 60 mL/min (>60); Ethanol (ETOH) < 10 mg/dL; Globulin 3.5 g/dL (1.7-4.1); Glucose 96 mg/dL (80-110); HEMOLYSIS < 15 (0-50); Sodium 137 mmol/L (137-145)
[2022-09-14 15:56] VITALS: BP 104/69; PULSE 76; O2SAT 99
[2022-09-14 15:56] LABS: TSH w/ Reflex to FT4 1.17 uIU/mL (0.47-4.68)
[2022-09-14 19:13] VITALS: BP 117/68; PULSE 67; RESP 18; O2SAT 98
--- NOTE | 2022-09-14 19:14 | ED.PSYCH ---
HPI - Psych General Chief Complaint: Psychiatric Symptoms Stated Complaint: mental health-overwhelm Time Seen by Provider: 09/14/22 16:47 Source: patient Mode of arrival: Ambulatory History of Present Illness HPI Narrative: Patient 62-year-old male history of depression, alcohol abuse and methamphetamine abuse presenting today for wanting to go to sleep and not wake up. Reports that he is feeling overwhelmed. He currently does not want to kill himself or others he has no plan. He is not wanting detox help. He says he wants inpatient treatment. It is confusing to me if he wants inpatient psychiatric treatment which is offered to him. He says that he wants help with his depression.. But he does not actively have a plan. He does not actively want to stop using alcohol or meth. It sounds as though he is having maybe some housing issues as well. He is very argumentative. I have seen him multiple times this is baseline. Related Data Previous Rx's Medication Instructions Recorded hydrocodone 5 mg-acetaminophen 325 1 tab PO Q6HR PRN Pain, Moderate 06/08/22 mg tablet (4-6) #20 tabs Allergies Allergy/AdvReac Type Severity Reaction Status Date / Time Androgenic Anabolic Steroid AdvReac Hallucinati Verified 06/19/22 16:36 ng Review of Systems Review of Systems ROS Unobtainable: All systems reviewed & are unremarkable except as noted in HPI and below Patient History Medical History Alcohol use Tobacco abuse Surgical History History of neck surgery Social History household members: significant other and none Smoking Status: Current every day smoker alcohol intake: current substance use type: former substance user additional social history: Lives alone, unemployed Smoking Status: Current every day smoker tobacco type: cigarettes alcohol intake frequency: 0-2 drinks per day Alcohol type: beer Substance Use Type: methamphetamine Exam Initial Vital Signs Initial Vital Signs: Vital Signs Temperature 97.5 F L 09/14/22 12:10 Blood Pressure 193/98 H 09/14/22 12:10 GENERAL: Cantankerous 62-year-old male good hygiene well-groomed CARDIOVASCULAR: peripheral pulses in tact, cap refill <2 sec RESPIRATORY: No respiratory distress, speaks in full sentences without difficulty EXTREMITIES: Normal range of motion, no clubbing or edema. Neurovascularly intact NEUROLOGICAL: Cranial nerves II through XII grossly intact. Normal gait and speech. SKIN: Warm, dry, no petechiae, no rashes or lesions. Course Orders Ordered: Discontinued Medications Acetaminophen (Acetaminophen 325 Mg Tablet) 975 mg PO NOW ONE Stop: 09/15/22 16:29 Last Admin: 09/15/22 16:47 Dose: 975 mg Documented By: RB Acetaminophen (Acetaminophen 325 Mg Tablet) 975 mg PO NOW ONE Stop: 09/15/22 22:13 Last Admin: 09/15/22 22:17 Dose: 975 mg Documented By: PRECIOUS Lorazepam (Lorazepam 0.5 Mg Tablet) 0.5 mg PO NOW ONE Stop: 09/14/22 16:48 Last Admin: 09/14/22 16:56 Dose: Not Given Documented By: GE[place] Lorazepam (Lorazepam 0.5 Mg Tablet) 0.5 mg PO NOW ONE Stop: 09/15/22 14:23 Last Admin: 09/15/22 14:29 Dose: 0.5 mg Documented By: EMA Lorazepam (Lorazepam 0.5 Mg Tablet) 1 mg PO NOW ONE Stop: 09/15/22 22:13 Last Admin: 09/15/22 22:17 Dose: 1 mg Documented By: PRECIOUS Nicotine (Nicotine 21 Mg Patch) 21 mg TOP NOW ONE Stop: 09/14/22 13:43 Last Admin: 09/14/22 14:58 Dose: 21 mg Documented By: GE[place] Nicotine (Nicotine 21 Mg Patch) 21 mg TOP NOW ONE Stop: 09/15/22 16:25 Last Admin: 09/15/22 16:51 Dose: 21 mg Documented By: RB Vital Signs Vital signs: Vital Signs - 8 hr 09/15/22 22:15 Pulse Rate 88 Respiratory Rate 18 Blood Pressure 93/69 Pulse Oximetry 98 Oxygen Delivery Method Room Air MDM - Psych Lab Data 09/14/22 15:05 09/14/22 15:05 Labs: Lab Results 09/14/22 09/14/22 09/14/22 Range/Units 14:14 15:05 15:05 WBC 8.4 (4.5-11.0) X10^3/uL RBC 4.61 (4.5-5.9) X10^6/uL Hgb 14.8 (13.5-17.5) g/dL Hct 43.7 (41-53) % MCV 94.8 (80-100) fL MCH 32.1 (26-34) PG MCHC 33.9 (30-36) % RDW 13.6 (11.6-14.8) % Plt Count 194 (150-400) X10^3/uL Neut % (Auto) 73.2 (50-75) % Lymph % (Auto) 16.9 L (25-40) % [place] % (Auto) 7.0 (3-14) % Eos % (Auto) 2.4 (2-4) % Baso % (Auto) 0.5 (0-2) % Neut # (Auto) 6100 (0182-6310) /uL Lymph # (Auto) 1400 (4876-6516) /uL [place] # (Auto) 600 (0-900) /uL Eos # (Auto) 200 (0-450) /uL Baso # (Auto) 0 (0-100) /uL Sodium 137 (137-145) mmol/L Potassium 4.0 (3.4-5.1) mmol/L Chloride 99 (98-107) mmol/L Carbon Dioxide 33 H (22-32) mmol/L BUN 16 (9-20) mg/dL Creatinine 0.73 (0.66-1.25) mg/dL Estimated GFR > 60 (>60) mL/min BUN/Creatinine Ratio 21.9 (6-22) Glucose 96 (80-110) mg/dL Calcium 9.1 (8.4-10.2) mg/dL Total Bilirubin 1.2 (0.2-1.3) mg/dL AST 26 (17-59) IU/L ALT 22 (<50) IU/L Alkaline Phosphatase 62 (38-126) U/L Total Protein 8.0 (6.3-8.2) g/dL Albumin 4.5 (3.5-5.0) g/dL Globulin 3.5 (1.7-4.1) g/dL Albumin/Globulin Ratio 1.3 (1.0-2.8) TSH (0.47-4.68) uIU/mL U Opiates 300ng/mL cut Negative (Negative) Ur Oxycodone Screen Negative (Negative) Urine Methadone Screen Negative (Negative) Ur Barbiturates Screen Negative (Negative) U Tricyclic Antidepress Negative (Negative) Ur Phencyclidine Scrn Negative (Negative) Ur Amphetamines Screen Negative (Negative) U Methamphetamines Scrn Negative (Negative) Ur MDMA Scrn (Ecstasy) Negative (Negative) U Benzodiazepines Scrn Negative (Negative) Urine Cocaine Screen Negative (Negative) U Marijuana (THC) Screen Negative (Negative) Ethyl Alcohol < 10 ( - 10) mg/dL 09/14/22 Range/Units 15:05 WBC (4.5-11.0) X10^3/uL RBC (4.5-5.9) X10^6/uL Hgb (13.5-17.5) g/dL Hct (41-53) % MCV (80-100) fL MCH (26-34) PG MCHC (30-36) % RDW (11.6-14.8) % Plt Count (150-400) X10^3/uL Neut % (Auto) (50-75) % Lymph % (Auto) (25-40) % [place] % (Auto) (3-14) % Eos % (Auto) (2-4) % Baso % (Auto) (0-2) % Neut # (Auto) (6098-1543) /uL Lymph # (Auto) (7365-6122) /uL [place] # (Auto) (0-900) /uL Eos # (Auto) (0-450) /uL Baso # (Auto) (0-100) /uL Sodium (137-145) mmol/L Potassium (3.4-5.1) mmol/L Chloride (98-107) mmol/L Carbon Dioxide (22-32) mmol/L BUN (9-20) mg/dL Creatinine (0.66-1.25) mg/dL Estimated GFR (>60) mL/min BUN/Creatinine Ratio (6-22) Glucose (80-110) mg/dL Calcium (8.4-10.2) mg/dL Total Bilirubin (0.2-1.3) mg/dL AST (17-59) IU/L ALT (<50) IU/L Alkaline Phosphatase (38-126) U/L Total Protein (6.3-8.2) g/dL Albumin (3.5-5.0) g/dL Globulin (1.7-4.1) g/dL Albumin/Globulin Ratio (1.0-2.8) TSH 1.17 (0.47-4.68) uIU/mL U Opiates 300ng/mL cut (Negative) Ur Oxycodone Screen (Negative) Urine Methadone Screen (Negative) Ur Barbiturates Screen (Negative) U Tricyclic Antidepress (Negative) Ur Phencyclidine Scrn (Negative) Ur Amphetamines Screen (Negative) U Methamphetamines Scrn (Negative) Ur MDMA Scrn (Ecstasy) (Negative) U Benzodiazepines Scrn (Negative) Urine Cocaine Screen (Negative) U Marijuana (THC) Screen (Negative) Ethyl Alcohol ( - 10) mg/dL Urine Dip Bedside Urine Glucose Negative Bedside Urine Bilirubin - Negative Bedside Urine Ketone - Negative Urine Specific [place] 1.010 Bedside Urine Occult Blood - Negative Bedside Urine pH 7.0 Bedside Urine Protein - Negative Bedside Urine Urobilinogen - Negative Bedside Urine Nitrite - Negative Bedside Urine Leukocytes - Negative Esterase MDM Narrative Medical decision making narrative: Patient argumentative I have explained to him with the emergency department can offer. We can offer help trying to get him into detox voluntary psych placement. We do not have social work here today. He would like help but does not quite understand the process and does not want it take very long. He finally agrees to stay in the ER he is now sleeping. He is not meeting any sort of involuntary criteria. He is clinically sober. Drug screen is negative alcohol is negative. Patient signed out to Dr. Hall 09/15/22 Dr. Valverde, patient cooperative throughout the day. Evaluated by social work and accepted at [facility]. Discharge Plan Departure Patient Disposition: Xfer Psychiatric Hosp Clinical Impression: Depression, Suicide ideation Prescriptions: No Action hydrocodone-acetaminophen 5-325 mg Tablet 1 tab PO Q6HR PRN (Reason: Pain, Moderate (4-6)) Qty: 20 0RF Referrals: Akosua Hernandez PA-C [Primary Care Provider] -
[2022-09-15 08:04] VITALS: BP 111/72; PULSE 75; RESP 18; TEMP 36.6; O2SAT 94
--- NOTE | 2022-09-15 12:35 | CM.SWNOTE ---
BAKING ASSISTANT Assessment BAKING ASSISTANT - Inspector Plumbing Assessment BAKING ASSISTANT/Inspector Plumbing Assessment Time Spent with Patient Start date 09/15/22 Visit Start Time 12:20 End date 09/15/22 Visit End Time 12:30 Total time Care Management spent on 15 minutes patient visit-in minutes Mental Health Screening Include Onset, Duration, Intensity Presenting Problem Patient presents to ED via POV due to concern for SI wanting to go to sleep and not wake up. Patient endorses concern for dual diagnosis and states his last use was two weeks ago when he was actively using Methamphetamine and alcohol. Patient endorses he is present at the ED seeking inpatient treatment. Patient states I can't cope. Precipitating Event(s) Patient endorses he has been feeling this way for a while. Patient endorses he has been depressed experiencing housing and financial struggles and difficulty managing daily life . Patient Strengths Patient is present at the ED seeking help. Current Behavioral Health Provider(s) Patient denies current MH Include Facility, Provider, Ph. # provider. Patient has PCP that has prescribed him 5mg of Buspirone. Psych. Hx Mental Health and Chemical Patient endorses SI, Dependency Depression, Anxiety, possible PTSD from past trauma. Patient endorses hx of Methamphetamine and alcohol use. Family Hx of Behavioral Abuse Patient endorses hx of trauma but chooses not describe details. Psychiatric Hospitalizations (date(s)/ Patient endorses hx of [facility] a location) few years ago at [facility]. Psychosocial information & Support Patient is 62 y/o male who Systems resides [place] family's property in [place] in [place]. Patient denies local supports. School/Work Patient receives SSI Legal Concerns Legal Matters - Outstanding Issues None reported Mental Status Orientation (Person/Place/Time) A/Ox4 Stated Mood can't cope Affect (Congruent with Mood?) anxious, elevated, somewhat congruent with mood. Thought Content - Specify/Describe Patient denies visual and Obsessions, Delusions, Hallucinations auditory hallucinations. Patient endorses when he has what he believes to be PTSD flashbacks states I see . Thought Processes (Btgitus-Nfnszfvl-Ohtd circumstantial Fqgyreee-Fheazobm-Sbwvmykjcx- Bknlujculqbnoi-Cnmvpak-Lpytyzqaxpcw- Thought Blocking) Speech (Mcxssy-Nlpj-Yrkutku-Rapid-Soft- pressured Loud-Pressured) Motor ([place]-Gegdstwtl-Anxc-Other) excessive, patient has difficulty sitting still at times. Insight (Giid-Gpag-Cphr/Limited) fair Judgement (Foym-Patj-Cawk/Limited) fair Impulse Control (Adequate-Impaired) adequate Memory (Bmeaasjtw-Qmbfor-Wellfe, intact, not formally assessed Impaired-Intact) Concentration (Intact-Impaired) intact Attention (Intact-Impaired) intact Behavior (Appropriate-Inappropriate) fairly appropriate, patient presents with some inpatience after waiting in ED for 24 hours. Risk Assessment Suicidal Ideation (Plan) No Homicidal Ideation (Plan) No Comment Patient replies to questions about SI and HI as No, not yet Patient endorses I want to go to sleep and not wake up . Patient denies plans to act on SI but presents with concern that he will develop plans. Intervention Intervention BAKING ASSISTANT enters room to meet with patient. Patient presents with concern for waiting and seeking help for inpatient hospitalization. Patient endorses concern his symptoms will worsen. Patient denies current SI or HI plans but wishes to go to sleep and not wake up. Patient endorses PTSD flashbacks, states he cannot sleep and has nightmares. Patient is seeking hospitalization for crisis stabilization and medication management. Patient endorses this preference given his circumstances and is not ready to discuss outpatient services at this time. It is the opinion of this BAKING ASSISTANT that patient would benefit from inpatient hospitalization for crisis management and medication management. BAKING ASSISTANT to review patient with ED provider. Plan RA Plan BAKING ASSISTANT to seek inpatient hospitalization for patient, patient is medically clear. BERE Hancock
[2022-09-15] MEDS: LORazepam 0.5 MG TABLET PO (14:29)
--- NOTE | 2022-09-15 14:58 | CM.SWNOTE ---
WELD INSPECTOR Note WELD INSPECTOR calls [facility] intake, it is reported that they have beds and can review patient. WELD INSPECTOR faxes clinicals for review. [facility] intake- [facility] calls and accepts patient, accepting provider is Shen Ramos NP. ETA is 2300, nurse to nurse is [phone]. WELD INSPECTOR reviews this with patient and patient indicates agreement and understanding. WELD INSPECTOR calls [facility] to schedule EMS, [facility] to arrive at 2150. Plan: patient to transfer to [facility] via EMS this evening for voluntary inpatient bed. Juliann Almanza, MEDIA CENTER ASSISTANT
[2022-09-15] MEDS: ACETAMINOPHEN 325 MG TABLET 975 MG PO ×2 (16:47→22:17)
[2022-09-15] MEDS: NICOTINE 21 MG PATCH TOP (16:51)
[2022-09-15 22:15] VITALS: BP 93/69; PULSE 88; RESP 18; O2SAT 98
[2022-09-15] MEDS: LORazepam 0.5 MG TABLET 1 MG PO (22:17)
== END 2022-09-15 22:27 ==
PROVIDERS: Emergency Provider Emergency Medicine; PCP Physician Assistant
DX: F32.A Depression, unspecified (principal); R45.851 Suicidal ideations
CPT/HCPCS: 80053; 80305; 80320; 81003; 84443; 85025; 99284